=== PATIENT | male | born 1945 | race Caucasian/White ===

== ENCOUNTER 2016-04-08 11:11 | Outpatient (CLI) | payer MEDICARE ==
[~2016-04-08] VITALS: Ht 182.9 cm; Wt 102.3 kg
--- NOTE | ~2016-04-08 | HEMODYNAMI ---
PATIENT:ROSMERY SHEFFIELD MEDICAL RECORD: [id number] : 45 LOCATION:[facility] ADMISSION DATE: 04/08/16 Generatedon:04/08/201614:42 Patient name: ROSMERY SHEFFIELD Patient #: [id number] SSN: : 1945 Date of study: 04/08/2016 Page: Of Hemodynamic Procedure Report Patient Data Patient Demographics Procedure consent was obtained First Name: ROSMERY Gender: Male Last Name: NETTIE : 1945 [facility] Initial: GRETTA Age: 70 year(s) Patient #: [id number] Race: Unknown Additional ID: [id number] Contact details [address]: [address] [place] [address] State: [place] City: [place] Zip code: [address] Past Medical History Allergies Allergen Reaction Date Comments Reported Iodine 04/08/2016 Admission Admission Data Admission Date: 04/08/2016 Admission Time: 11:11 Lab Results Lab Result Date: 04/08/2016 Lab Result Time: 0:00 Biochemistry Name Units Result Min Max Creatinine mg/dl 1.1 --(--*-)-- 0.6 1.3 CBC Name Units Result Min Max Hemoglobin g/dl 11.9 *-(----)-- 13.5 17.5 Procedure Procedure Types Cath Procedure Diagnostic Procedure [facility] w/Coronaries w/Grafts Aortic Root Angiography PCI Procedure Coronary Stent Initial Miscellaneous Procedures Moderate Sedation up to 45 minutes Procedure Description Procedure Date Procedure Date: 04/08/2016 Procedure Start Time: 13:46 Procedure End Time: 14:28 Procedure Staff Name Function Amber Hilton RT Monitor Dixon Rios RT Scrub Oliverio Amador RN Nurse Jamil Ferguson MD Performing Physician Procedure Data Cath Procedure Fluoroscopy Diagnostic fluoroscopy Total fluoroscopy Time: 9.9 time: 9.9 min min Diagnostic fluoroscopy Total fluoroscopy dose: dose: 1596 mGy 1596 mGy Contrast Material Contrast Material Type Amount (ml) Isovue 300 188 Entry Location Entry Primary Successful Side Size Upsize Upsize Entry Closure Succes sful Closure Location (Fr) 1 (Fr) 2 (Fr) Remarks Device Remarks Femoral Right 5 Fr Exoseal artery Estimated blood loss: 5 ml Diagnostic catheters Device Type Used For End Catheter Placement Cordis 5Fr JL 4.0 Left Coronary Catheter (MP) Angiography Cordis 5Fr 3DRC Catheter Right Coronary (MP) Angiography Cordis 5Fr 3DRC Catheter SVG Angiography (MP) Cordis 5Fr 3DRC Catheter SVG Angiography (MP) Cordis 5Fr 3DRC Catheter Internal mammary (MP) arteriography Diagnostic Infinity 5Fr SVG Angiography MPA-2 catheter Cordis 5Fr Pigtail LV Angiography Catheter (MP) Procedure Complications No complications Procedure Medications Medication Administration Route Dosage Oxygen NC 2 l/min Lidocaine 2% added to field 20 Heparin Flush Bag added to field 2 bags (1000units/500ml NS) 0.9% NaCl I.V. 100 ml/hr Benadryl I.V. 50 mg Versed I.V. 1 mg Fentanyl I.V. 100 mcg Versed I.V. 1 mg Fentanyl I.V. 50 mcg Versed I.V. 1 mg Fentanyl I.V. 50 mcg Versed I.V. 1 mg Fentanyl I.V. 50 mcg Heparin Bolus I.V. 5000 units Integrilin (Bolus I.V. 9 ml 2mg/ml) Plavix P.O. 600 mg Hemodynamics Rest HGB: 11.9 (g/dl) Heart Rate: 75 (bpm) Pressure Samples Time Site Value (mmHg) Purpose Heart Use Rate(bpm) 14:00 LV 123/3,17 EDP 76 14:01 LV 121/19,20 Pullback 75 14:01 AO 124/66(90) Pullback 75 Gradients Valve Time Site 1 Site 2 Mean SEP/DFP Peak To Heart Use (mmHg) (sec/min) Peak Rate (mmHg) (bpm) Aortic 14:01 LV AO 0 12 0 75 121/19,20 124/66(90) Calculations Valve P-P Mean Valve Index Valve Source Name Gradient Area Flow (cm2) Aortic 0 0 0 0 Snapshots Pre Cath Intra NCS Post Cath Vital Signs Time Heart Resp SPO2 etCO2 [id number] NIBP (mmHg) Rhythm Pain Status Sharlene tion Rate (ipm) (%) (mmHg) (mmHg) Level (bpm) 13:35:48 81 15 99 0 0 146/81(121) NSR 5 (11) , 10(A ) Very distressing 13:40:04 76 17 100 0 0 143/85(117) NSR 5 (11) , 10(A ) Very distressing 13:44:29 73 16 99 0 0 141/75(113) NSR 0 (11) , No 10(A ) pain 13:48:47 74 15 97 0 0 136/74(104) NSR 0 (11) , No 9(A) pain 13:53:07 69 17 98 0 0 128/73(104) NSR 0 (11) , No 9(A) pain 13:57:25 76 17 97 0 0 119/69(96) NSR 0 (11) , No 9(A) pain 14:01:39 75 17 97 0 0 132/71(101) NSR 0 (11) , No 9(A) pain 14:05:55 72 18 99 0 0 121/75(103) NSR 0 (11) , No 9(A) pain 14:10:07 70 16 97 0 0 123/69(95) NSR 0 (11) , No 9(A) pain 14:14:24 69 17 98 0 0 116/62(99) NSR 0 (11) , No 9(A) pain 14:18:40 75 17 97 0 0 125/72(115) NSR 0 (11) , No 10(A ) pain 14:22:58 73 16 97 0 0 129/73(101) NSR 0 (11) , No 10(A ) pain Medications Time Medication Route Dose Verified Delivered Reason Notes Effectiveness by by 13:36:48 Oxygen NC 2 Jamil Janeie used for l/min [facility] Corby Amador RN procedure 13:36:57 Lidocaine 2% added 20ml Jamil Jamil for local to vial [facility] anesthetic field MD GRANT 13:37:02 Heparin Flush added 2 Jamil Jamil used for Bag to bags [facility] procedure (1000units/500ml field MD GRANT NS) 13:37:10 0.9% NaCl I.V. 100 Jamil Buffie Per physician ml/hr [facility] Corby Amador RN, MD 13:37:20 Benadryl I.V. 50 mg Jamil Janeie used for [facility] Corby Amador RN procedure 13:41:42 Versed I.V. 1 mg Jamil Buffie for sedation St. Coryb Amador RN, MD 13:41:47 Fentanyl I.V. 100 Jamil Buffie for sedation mcg [facility] Corby Amador RN, MD 13:44:59 Versed I.V. 1 mg Jamil Buffie for sedation [facility] Corby Amador RN, MD 13:45:07 Fentanyl I.V. 50 Jamil Buffie for sedation mcg [facility] Corby Amador RN, MD 13:52:46 Versed I.V. 1 mg Jamil Buffie for sedation [facility] Corby Amador RN, MD 13:52:49 Fentanyl I.V. 50 Jamil Buffie for sedation mcg [facility] Corby Amador RN, MD 13:56:29 Versed I.V. 1 mg Jamil Buffie for sedation [facility] Corby Amador RN, MD 13:56:33 Fentanyl I.V. 50 Jamil Buffie for sedation mcg [facility] Corby Amador RN, MD 14:06:38 Heparin Bolus I.V. 5000 Jamil Buffie for verifi ed units [facility] Corby Amador RN anticoagulation with dr MD barrientos 14:08:22 Integrilin I.V. 9 ml Jamil Laraie for Wasted 1 (Bolus 2mg/ml) [facility] Corby Amador RN anticoagulation ml of MD vial 14:23:37 Plavix P.O. 600 Jam[address] for mg [facility] Corby Amador RN antiplatelet therapy Procedure Log Time Note 13:08:59 Dixon Rios RT(R) sent for patient. Start room use. 13:09:01 Time tracking: Regular hours 13:09:05 Plan of Care:Hemodynamics will remain stable., Cardiac rhythm will remain stable., Comfort level will be maintained., Respiratory function will remain adequate., Patient/ family verbilizes understanding of procedure., Procedure tolerated without complication., Recovers from procedure without complications.. 13:25:18 Patient received from Pre/Post Procedure Room to CCL 1 Alert and oriented. Tansferred to table in Supine position. 13:34:25 Correct patient and procedure confirmed by team. 13:34:25 Warm blankets applied, and oswaldo hugger turned on for patient comfort. 13:34:27 ECG and BP/O2 sat monitors applied to patient. 13:34:27 Signed procedure consent form obtained from spouse. 13:34:31 Vital chart was started 13:34:53 Rhythm: sinus rhythm 13:34:55 Full Disclosure recording started 13:35:02 H&P Date Dictated: 04/06/2016 Within 30 days and on chart., H&P Addendum completed by physician on day of procedure. (MUST COMPLETE FOR ALL OUTPATIENTS). 13:35:04 Pre-op teaching completed and patient verbalized understanding. 13:35:04 Pre-procedure instructions explained to patient. 13:35:05 Family in waiting room. 13:35:08 Patient NPO since Midnight. 13:35:20 Patient allergic to Iodine 13:35:23 Is the patient allergic to Iodine/contrast media? Yes. 13:35:25 Was the patient premedicated? Yes 13:35:27 Is patient on blood thinner?No 13:35:36 Patient diabetic? No. 13:35:47 Previous problem with sedation/anesthesia? No ? 13:35:49 Snore? Yes 13:35:58 Sleep apnea? No 13:35:59 Deviated septum? No 13:36:00 Sticks out tongue? Yes 13:36:00 Opens mouth fully? Yes 13:36:02 Airway obstruction? No ? 13:36:07 Dentures? No ? 13:36:11 Pre procedure: right dorsailis pedis pulse 2+ Normal; easily identifiable; not easily obliterated 13:36:13 Patient pain scale 0/10 ?. 13:36:20 IV patent on arrival in left hand with 0.9% NaCl at [facility]. 13:36:48 Oxygen 2 l/min NC was given by Oliverio Amador RN; used for procedure; 13:36:57 Lidocaine 2% 20ml vial added to field was given by Jamil Ferguson MD; for local anesthetic; 13:37:02 Heparin Flush Bag (1000units/500ml NS) 2 bags added to field was given by Jamil Ferguson MD; used for procedure; 13:37:10 0.9% NaCl 100 ml/hr I.V. was given by Oliverio Amador RN; Per physician; 13:37:13 Lab Result : Hemoglobin 11.9 g/dl 13:37:13 Lab Result : Creatinine 1.1 mg/dl 13:37:18 Lab results completed and on chart. 13:37:20 Right groin area was prepped with chlora-prep and draped in sterile fashion 13:37:20 Benadryl 50 mg I.V. was given by lOiverio Amador RN; used for procedure; 13:37:21 Sharps counted by scrub and verified by R.N. 13:37:21 Alarms reviewed by R. N. 13:37:24 Use device set Femoral Dx 13:37:25 Bag Decanter opened to sterile field. 13:37:25 Acist Syringe opened to sterile field. 13:37:26 Terumo 5Fr Graton Sheath opened to sterile field. 13:37:26 Medline Cath Pack opened to sterile field. 13:37:27 St Abhishek 260cm J .035 wire opened to sterile field. 13:37:28 Acist Manifold opened to sterile field. 13:37:28 Acist Hand Control opened to sterile field. 13:37:29 Tegaderm 4 x 4 opened to sterile field. 13:37:29 Diagnostic Infinity 5Fr Multipack catheter opened to sterile field. 13:40:04 Baseline sample Acquired. 13:40:11 Final Timeout: patient, procedure, and site verified with staff and physician. All members of the team are in agreement. 13:40:13 Quick combo pads placed on patients chest and back. 13:40:26 Right groin site verified by team. 13:40:31 Physical assessment completed. ASA score P 2 - A patient with mild systemic disease as per Jamil Ferguson MD. 13:40:35 Sedation plan: IV Moderate Sedation Versed, Fentanyl 13:41:42 Versed 1 mg I.V. was given by Oliverio Amador RN; for sedation; 13:41:47 Fentanyl 100 mcg I.V. was given by Oliverio Amador RN; for sedation; 13:44:43 Zero performed for pressure channel P1 13:44:59 Versed 1 mg I.V. was given by Oliverio Amador RN; for sedation; 13:45:07 Fentanyl 50 mcg I.V. was given by Oliverio Amador RN; for sedation; 13:45:59 Procedure started. 13:46:02 Local anesthetic to right femoral artery with Lidocaine 2% by Jamil Ferguson MD.INITIAL ACCESS ONLY 13:47:19 A 5 Fr sheath was inserted into the Right Femoral artery 13:49:18 A Cordis 5Fr JL 4.0 Catheter (SHAYY) was advanced over the wire and used for Left Coronary Angiography. 13:52:46 Versed 1 mg I.V. was given by Oliverio Amador RN; for sedation; 13:52:49 Fentanyl 50 mcg I.V. was given by Oliverio Amador RN; for sedation; 13:53:48 Catheter removed. 13:53:56 A Cordis 5Fr 3DRC Catheter (MP) was advanced over the wire and used for Right Coronary Angiography. 13:54:15 A Cordis 5Fr 3DRC Catheter (MP) was advanced over the wire and used for SVG Angiography.To Circ--Occluded 13:54:26 A Cordis 5Fr 3DRC Catheter (MP) was advanced over the wire and used for SVG Angiography.To RCA 13:55:13 A Cordis 5Fr 3DRC Catheter (MP) was advanced over the wire and used for Internal mammary arteriography.Not Grafted 13:56:13 Catheter removed. 13:56:29 Versed 1 mg I.V. was given by Oliverio Amador RN; for sedation; 13:56:33 Fentanyl 50 mcg I.V. was given by Oliverio Amador RN; for sedation; 13:57:33 A Diagnostic Infinity 5Fr MPA-2 catheter was advanced over the wire and used for SVG Angiography.To RCA 13:58:29 Catheter removed. 13:58:35 A Cordis 5Fr Pigtail Catheter (MP) was advanced over the wire and used for LV Angiography. 13:59:16 Procedure type changed to Cath procedure, Diagnostic procedure, LHC, LHC w/Coronaries w/Grafts, Aortic Root Angiography, PCI procedure, Coronary Stent Initial, Miscellaneous Procedures, Moderate Sedation up to 45 minutes 14:00:50 LV gram done using ANDRADE 14:00:51 LV hemodynamics recorded. 14:00:54 Injector settings: Ml/sec: 10, Volume: 20, 14:01:37 Aortic Root visualized 14:03:14 Catheter removed. 14:03:44 Cordis 6FR XBLAD 3.5 guide catheter opened to sterile field. 14:03:45 Buyanihan BasixCompak Inflation Kit opened to sterile field. 14:04:49 Terumo 6Fr Graton Sheath opened to sterile field. 14:04:59 William Whisper J 300cm 0.014 guide wire opened to sterile field. 14:06:38 Heparin Bolus 5000 units I.V. was given by Oliverio Amador RN; for anticoagulation; verified with dr barrientos 14:07:29 6 Fr XBLAD 3.5 guide catheter was inserted over the wire 14:07:33 Phoenix wire advanced. 14:08:22 Integrilin (Bolus 2mg/ml) 9 ml I.V. was given by Oliverio Amador RN; for anticoagulation; Wasted 1 ml of vial 14:08:59 Whisper wire advanced. 14:11:42 Inflation number: 1 A Rillito FlowCardia White 3.0 X 15 balloon was prepped and advanced across the LMCA, then inflated to 12 NANCY for 0:29 (min:sec). 14:12:53 Balloon removed over the wire. 14:16:12 Inflation Number: 2 A Bitglasstronic Integrity 4.0 X 15 stent was prepped and advanced across the LMCA. The stent was deployed at 14 NANCY for 0:34 (min:sec). 14:16:51 Stent catheter was removed intact over wire. 14:17:07 Wire removed. 14:17:08 Guide catheter removed. 14:17:18 Sheath removed intact; hemostasis achieved with Exoseal to the Right Femoral artery. 14:17:28 Cordis 6Fr Exoseal opened to sterile field. 14:17:31 Procedure ended.(Physican Out) 14:18:09 Fluoroscopy time 09.90 minutes. 14:18:14 Fluoroscopy dose: 1596 mGy 14:18:14 Flurop Dose total: 1596 14:18:18 Contrast amount:Isovue 300 188ml. 14:18:20 Sharps counted by scrub and verified by R.N. 14:18:21 Insertion/operative site no bleeding no hematoma. 14:18:24 Post-op/insertion site Right Femoral artery dressed using a 4 x 4 and Tegaderm. 14:18:28 Post right femoral artery:stable, clean and dry 14:18:31 Post Procedure Pulses reassessed and unchanged 14:18:34 Post-procedure physical assessment completed. ASA score P 2 - A patient with mild systemic disease as per Jamil Ferguson MD. 14:18:37 Post procedure rhythm: unchanged. 14:18:41 Estimated blood loss: 5 ml 14:18:43 Post procedure instruction explained to patient.Patient verbalizes understanding. 14:18:44 Patient needs reinforcement of post procedure teaching. 14:18:53 Procedure Complication : No complications 14:18:56 See physician's report for complete and final results. 14:22:38 Terumo ANGLE 260cm glide wire opened to sterile field. 14:23:37 Plavix 600 mg P.O. was given by Oliverio Amador RN; for antiplatelet therapy; 14:24:40 Quick Combo opened to sterile field. 14:26:08 Vital chart was stopped 14:26:08 Procedure and supply charges have been captured, reviewed, submitted and are correct. 14:26:14 Report given to Pre/Post Procedure Room. 14:26:17 Patient transfered to Pre/Post Procedure Room with Stretcher. 14:28:12 Full Disclosure recording stopped 14:28:12 Procedure ended. 14:28:17 End room use (Document Last) Intervention Summary Intervention Notes Time ActionType Lesion and Equipment Action# Pressure Duration Attributes Used 14:11:42 Inflate LMCA Rillito 1 12 00:29 balloon Sci White 3.0 X 15 balloon 14:16:12 [address] stent LMCA Medtronic 2 14 00:34 Integrity 4.0 X 15 stent Device Usage Item Name Manufacture Quantity Catalog Number Hospital Part Current Mini mal Lot# / Charge Number Stock Stock Serial# Code Acist Acist 1 [id number] 649070 086733 787717 20 Syringe Medical Systems Inc Bag Microtek 1 2002S 621565 95577 662797 5 [employer] Medical Inc. Medline Cardinal 1 [id number] 550077 95772 358677 5 Cath Pack Health Terumo 5Fr Terumo 1 [id number] 252897 754735 975287 [address] Abhishek 1 213508 974993 268941 331209 30 260cm J .035 wire Acist Hand Acist 1 58762 587863 729939 778592 5 Control Medical Systems Inc Acist Acist 1 27611 406013 523451 470689 5 Manifold Medical Systems Inc Diagnostic Cardinal 1 [id number] 276474 98560 552440 30 Borderfree 5Fr Multipack catheter Tegaderm 4 3M 1 1626W 643144 707993 139248 5 x 4 Cordis 5Fr Cardinal 1 909108 5 JL 4.0 Health Catheter (MP) Cordis 5Fr Cardinal 1 813539 5 3DRC Health Catheter (MP) Diagnostic Cardinal 1 [id number] 877827 428211 018328 5 Infinity Health 5Fr MPA-2 catheter Cordis 5Fr Cardinal 1 024623 5 Pigtail Health Catheter (MP) Cordis 6FR Cardinal 1 [id number] 739066 032410 806560 10 XBLAD 3.5 Health guide catheter [facility] 1 [id number] 539470 621846 223987 15 Biogenic ReagentsixTeamVisibility Medical Inflation Kit Terumo 6Fr Terumo 1 [id number] 470370 475603 244322 40 Graton Sheath William William 1 [id number] 997046 978475 386896 5 Whisper J Vascular 300cm 0.014 guide wire Rillito Sci Rillito 1 [id number] 957971 804890 297508 1 [id number] [employer] 3.0 X 15 balloon Medtronic Medtronic 1 [id number] 035644 403687 7 [id number] Integrity 4.0 X 15 stent Cordis 6Fr Cardinal 1 EX600 021871 106180 456417 10 The Grommet Terumo Terumo 1 [id number] 171288 849937 334658 5 ANGLE 260cm glide wire Skyeng 1 [id number] 739664 652177 817725 5 Signature Audit Notrees Stage Time Signature Unsigned Intra-Procedure 04/08/2016 Amber Clark Counts 2:28:30 PM Counts RT(R) RT(R) 04/08/2016 2:41:30 PM Intra-Procedure 04/08/2016 Amber 2:42:24 PM Counts RT(R) Signatures Monitor : Amber Signature : Counts RT Date : Time : [facility] [address] [place] [address]
[2016-04-08] MEDS ORDERED: LISINOPRIL-HCTZ1 TA2 PO (12:39)
[2016-04-08] MEDS ORDERED: BAYER CHEWABLE81 MG PO (12:39)
[2016-04-08] MEDS ORDERED: BACLOFEN10 MG PO (12:39)
[2016-04-08] MEDS ORDERED: HYDROCODON-ACE1 EAC9 PO (12:40)
[2016-04-08] MEDS ORDERED: COREG6.25 MG PO (12:40)
[2016-04-08] MEDS ORDERED: TIROSINT100 MCG PO (12:41)
[2016-04-08] MEDS ORDERED: ALDACTONE25 MG PO (12:42)
[2016-04-08] MEDS ORDERED: PEPCID AC20 MG PO (12:42)
[2016-04-08 12:49] VITALS: BP 137/61; Ht 182.9 cm; Wt 102.3 kg
[2016-04-08 13:16] LABS: BASOPHILS 0 % (0.0-2.0); EOSINOPHILS 0 % (0-7); HEMATOCRIT 35.9 % (42.0-54.0); HEMOGLOBIN 11.9 g/dL (13.5-17.5); IMMATURE GRANULOCYTES 0.3 % (0-5); LYMPHOCYTES 14.6 % (15-50); MCH 31.6 pg (26.0-34.0); MCHC 33.1 g/dL (31.0-37.0); MCV 95.5 fL (80.0-100.0); MEAN PLATELET VOLUME 9.2 fL (7.4-10.4); MONOCYTES 7.7 % (2-11); NEUTROPHILS 77.4 % (40-80); PLATELET COUNT 175 10x3/uL (130-400); RBC 3.76 10x6/uL (4.20-6.10); RDW 13.1 % (11.5-14.5); WBC 8.9 10x3/uL (4.8-10.8)
[2016-04-08 13:31] LABS: ANION GAP 14.7 mmol/L (8-16); CALCIUM 9.3 mg/dL (8.5-10.1); CARBON DIOXIDE 27.6 mmol/L (21.0-32.0); CREATININE - SERUM 1.1 mg/dL (0.6-1.3); POTASSIUM - SERUM 4.3 mmol/L (3.5-5.1)
[2016-04-08] MEDS ORDERED: PLAVIX75 MG PO (14:54)
--- NOTE | 2016-04-08 14:55 | NUR ---
RESTING IN BED, VSS. 2L NC, NO RESP DISTRESS NOTED. NO C/O NAUSEA OR CHEST PAIN. INSTRUCTED PT TO KEEP HEAD FLAT ON PILLOW AND RIGHT LEG STRAIGHT. RIGHT GROIN DRESSING CDI, NO BLEEDING OR HEMATOMA NOTED. WILL CONTINUE TO MONITOR.
--- NOTE | 2016-04-08 15:25 | NUR ---
IN BED WITH EYES CLOSED, VSS. RIGHT GROIN CDI, NO HEMATOMA NOTED. NO C/O N/V OR CHEST PAIN. WILL CONTINUE TO MONITOR.
--- NOTE | 2016-04-08 15:40 | NUR ---
VOIDED 150CC OF CLEAR YELLOW URINE.
--- NOTE | 2016-04-08 16:10 | NUR ---
SANDWICH TRAY SERVED. NO C/O NAUSEA. VSS. WILL CONTINUE TO MONITOR.
--- NOTE | 2016-04-08 16:41 | NUR ---
RESTING IN BED, VSS. NO NEEDS VOICED AT THIS TIME. RIGHT GROIN DRESSING CDI, NO BLEEDING OR HEMATOMA NOTED. NO C/O PAIN AT THIS TIME. WILL CONTINUE TO MONITOR.
--- NOTE | 2016-04-08 18:33 | NUR ---
1800-UP IN ROOM, AMBULATE, VOID 600CC CLEAR YELLOW URINE. RIGHT GROIN- CDI, NO HEMATOMA NOTED, SOFT TO TOUCH. 1815-IV D'C WITH CATH TIP INTACT, WRITTEN AND VERBAL INSTRUCTIONS GIVEN, INSTRUCTED TO CALL OFFICE TUESDAY FOR INFO ON NEXT STENT. 1830-D'C HOME WITH FAMILY IN PRIVATE CAR
--- NOTE | 2016-04-12 14:24 | OP ---
PATIENT NAME: ROSMERY SHEFFIELD MEDICAL RECORD: [id number] :45 LOCATION:D.CAT ADMISSION DATE: SURGEON: VERO MARTINES MD DATE OF OPERATION: 04/08/2016 PROCEDURE: Left heart catheterization, selective coronary angiography, right femoral approach. CATHETERS: A 5-Trinidadian sheath, 5/4 left and right Yvonne, 5/4 pig. The procedure was tolerated and the patient returned to the haas, sheath removed. FINDINGS: Left ventriculography in the 30-degree ANDRADE view shows lateral hypokinesis. Overall, function reduced 30-35%. CORONARY ANATOMY: LEFT MAIN: Left main has a distal 90-95% stenosis before the takeoff the LAD. CIRCUMFLEX: Itself is totally occluded, fills via right to left collaterals. Right coronary is totally occluded. AORTIC ROOT: Aortic root injection was performed. This showed the only patent graft is the saphenous vein graft to the right. Saphenous vein graft to right shows an 80% mid portion stenosis fairly discrete. IMPRESSION AND PLAN: Intervention of the left main momentarily. Intervention to the right saphenous vein graft to right at a later date. A 5-Trinidadian sheath was changed for a 6-Trinidadian sheath. XB LAD guide catheter provided good guide catheter support followed by a 300 cm Whisper wire, which was placed across the 90% left main this portion of vessel. Predeployment balloon was a 3.0 x 15-mm Scurry balloon, which was inflated up to 12 atmospheres for adequate pre-deployment. Next, stent placed was a 4.0 x 15 mm Integrity nondrug-eluting stent was inflated to 14 atmospheres for 45 seconds. Final x-rays shows excellent resolution of a 90% to 95% stenosis to no residual. DOUG flow was 3 throughout the procedure. Heparin, Integrilin was used in the case. Plavix was loaded in the lab. Sheath was closed with ExoSeal device. TRANSINT:[id number] Voice Confirmation ID: [id number] DOCUMENT ID: [id number] VERO MARTINES MD at 1424 CC: [id number] DICTATION DATE: 04/08/16 1425 PUBLIC HEALTH SANITARIAN TECHNICIAN: 04/08/16 1518 DEP CLI 04/08/16 [place] [id number]
== END 2016-04-08 18:30 | disposition home or self-care (01) ==
LOC: D.CATH 11:11
PROVIDERS: Internal Medicine Cardiovascular Disease
DX: I25.10 Atherosclerotic heart disease of native coronary artery without angina pectoris (principal); I25.810 Atherosclerosis of coronary artery bypass graft(s) without angina pectoris

== ENCOUNTER 2016-04-20 11:38 | Outpatient (CLI) | payer MEDICARE ==
[~2016-04-20] VITALS: Ht 182.9 cm; Wt 102.7 kg
--- NOTE | ~2016-04-20 | HEMODYNAMI ---
PATIENT:ROSMERY SHEFFIELD MEDICAL RECORD: [id number] : 45 LOCATION:[facility] ADMISSION DATE: 04/20/16 Generatedon:04/20/201615:24 Patient name: ROSMERY SHEFFIELD Patient #: [id number] : 1945 Date of study: 04/20/2016 Page: Of Hemodynamic Procedure Report Patient Data Patient Demographics Procedure consent was obtained First Name: ROSMERY Gender: Male Last Name: NETTIE : 1945 Middle Initial: GRETTA Age: 70 year(s) Patient #: [id number] Race: SSN: [id number] Additional ID: [id number] Contact details Address: [address] [place] [address] State: [place] City: [place] Zip code: [address] Past Medical History Allergies Allergen Reaction Date Comments Reported Iodine 04/08/2016 Other allergy 04/20/2016 iodine Admission Admission Data Admission Date: 04/20/2016 Admission Time: 11:38 Arrival Date: 04/20/2016 Arrival Time: 14:00 Admit Source: Other Insurance Payor: Private health insurance Height (in.): 73 BSA: 2.3 (m2) Height (cm.): 185.42 BMI: 30.87 (kg/m2) Weight (lbs.): 234 Weight (kg.): 106.14 Lab Results Lab Result Date: 04/20/2016 Lab Result Time: 0:00 CBC Name Units Result Min Max Hemoglobin g/dl 12.5 *-(----)-- 13.5 17.5 Procedure Procedure Types Cath Procedure PCI Procedure SVG-BMS/CHARBEL Initial Procedure Description Procedure Date Procedure Date: 04/20/2016 Procedure Start Time: 15:02 Procedure End Time: 15:21 Procedure Staff Name Function Jamil Ferguson MD Performing Physician Remedios Hernandez RT Scrub Katherine Delaney RN Nurse Kristen Hanson RT Monitor Procedure Data Cath Procedure Fluoroscopy Diagnostic fluoroscopy Total fluoroscopy Time: 6.2 time: 6.2 min min Diagnostic fluoroscopy Total fluoroscopy dose: dose: 223.39 mGy 223.39 mGy Contrast Material Contrast Material Type Amount (ml) Isovue 370 47 Entry Location Entry Primary Successful Side Size Upsize Upsize Entry Closure Succes sful Closure Location (Fr) 1 (Fr) 2 (Fr) Remarks Device Remarks Femoral Right 6 Fr Exoseal artery Short Estimated blood loss: 5 ml Procedure Complications No complications Procedure Medications Medication Administration Route Dosage Oxygen NC 2 l/min Heparin Flush Bag added to field 2 bags (1000units/500ml NS) Lidocaine 2% added to field 20 Fentanyl I.V. 50 mcg Versed I.V. 1 mg Fentanyl I.V. 50 mcg Versed I.V. 1 mg Fentanyl I.V. 25 mcg Fentanyl I.V. 50 mcg Heparin Bolus I.V. 5000 units Hemodynamics Rest BSA: 2.3 (m2) HGB: 12.5 (g/dl) O2 Consumption: Estimated: 238.75 (ml/min) O2 Con sumption indexed: Estimated:103.8 (ml/min/m) Heart Rate: 38 (bpm) Snapshots Pre Cath Intra NCS Post Cath Vital Signs Time Heart Resp SPO2 NIBP (mmHg) Rhythm Pain Sedation Rate (ipm) (%) Status Level (bpm) 14:52:23 88 18 99 133/83(127) NSR 0 (11) 10(A) , No pain 14:56:45 73 20 100 141/72(102) NSR 0 (11) 10(A) , No pain 15:01:05 81 19 100 131/70(103) NSR 0 (11) 10(A) , No pain 15:05:25 80 16 98 137/73(101) NSR 0 (11) 9(A) , No pain 15:09:35 83 20 96 110/79(96) NSR 0 (11) 9(A) , No pain 15:13:47 71 19 96 118/62(88) NSR 0 (11) 9(A) , No pain 15:18:07 79 18 94 116/63(83) NSR 0 (11) 9(A) , No pain Medications Time Medication Route Dose Verified Delivered Reason Notes Effectiveness by by 14:55:03 Oxygen NC 2 Katherine Katherine used for l/min Delaney Delaney locks tender RN 14:55:12 Heparin Flush added 2 Katherine Katherine used for Bag to bags Delaney Delaney procedure (1000units/500ml field RN RN NS) 14:55:40 Lidocaine 2% added 20ml Katherine Katherine used for to vial Delaney Delaney procedure field RN RN 15:04:06 Fentanyl I.V. 50 Katherine Katherine for sedation mcg Rhett Delaney RN RN 15:04:11 Versed I.V. 1 mg Katherine Katherine for sedation Delaneyhubert Delaney RN RN 15:05:53 Fentanyl I.V. 50 Katherine Katherine for sedation mcg Rhett Delaney RN RN 15:05:56 Versed I.V. 1 mg Katherine Aktherine for sedation Delaneyhubert Delaney RN RN 15:06:39 Fentanyl I.V. 25 Katherine Katherine for sedation mcg Rhett Delaney RN RN 15:15:41 Fentanyl I.V. 50 Katherine Katherine for sedation mcg Rhett Delaney RN RN 15:16:26 Heparin Bolus I.V. 5000 Katherine Katherine for units Delaney Delaney anticoagulation RN beef boner Log Time Note 14:30:21 Remedios Hernandez RT(R) sent for patient. Start room use. 14:42:51 Informed consent obtained and on chart 14:42:57 Diagnostic Cath Status : Elective 14:43:45 Time tracking: Regular hours 14:43:49 Plan of Care:Hemodynamics will remain stable., Cardiac rhythm will remain stable., Comfort level will be maintained., Respiratory function will remain adequate., Patient/ family verbilizes understanding of procedure., Procedure tolerated without complication., Recovers from procedure without complications.. 14:44:42 Patient Height : 185.42 inches 14:44:45 Patient Weight : 106.14 lbs 14:44:47 Admit Source: Other 14:44:49 Arrival Date: 04/20/2016 2:00:00 PM 14:46:01 Insurance Payor : Private health insurance 14:46:21 Patient received from Pre/Post Procedure Room to CCL 3 Alert and oriented. Tansferred to table in Supine position. 14:46:22 Warm blankets applied, and oswaldo hugger turned on for patient comfort. 14:46:22 Correct patient and procedure confirmed by team. 14:46:24 Signed procedure consent form obtained from patient. 14:51:04 ECG and BP/O2 sat monitors applied to patient. 14:51:05 Vital chart was started 14:51:06 Baseline sample Acquired. 14:51:13 Baseline sample Acquired. 14:51:18 Full Disclosure recording started 14:51:32 H&P Date Dictated: 04/06/2016 Within 30 days and on chart., H&P Addendum completed by physician on day of procedure. (MUST COMPLETE FOR ALL OUTPATIENTS). 14:51:36 Family in waiting room. 14:51:38 Patient NPO since Midnight. 14:51:52 Patient allergic to Other allergyiodine 14:51:55 Is the patient allergic to Iodine/contrast media? Yes. 14:51:56 Was the patient premedicated? Yes 14:52:02 Patient diabetic? No. 14:52:05 Snore? Yes 14:52:07 Sleep apnea? No 14:52:27 Previous problem with sedation/anesthesia? No ? 14:52:37 Dentures? Yes tight 14:55:03 Oxygen 2 l/min NC was given by Katherine Delaney RN; used for procedure; 14:55:12 Heparin Flush Bag (1000units/500ml NS) 2 bags added to field was given by Katherine Delaney RN; used for procedure; 14:55:40 Lidocaine 2% 20ml vial added to field was given by Katherine Delaney RN; used for procedure; 14:57:06 Baseline sample Acquired. 14:57:10 Rhythm: sinus rhythm 14:57:37 Deviated septum? No 14:57:46 Opens mouth fully? Yes 14:57:47 Sticks out tongue? Yes 14:57:51 Airway obstruction? No ? 14:57:54 Pre procedure: right dorsailis pedis pulse 1+ Palpable, but thready & weak; easily obliterated 14:57:57 Patient pain scale 0/10 ?. 14:58:12 IV patent on arrival in left forearm with 0.9% NaCl at [facility]. 15:01:24 Lab Result : Hemoglobin 12.5 g/dl 15:01:27 Lab results completed and on chart. 15:01:30 Right groin area was prepped with chlora-prep and draped in sterile fashion 15::31 Alarms reviewed by R. N. 15::31 Sharps counted by scrub and verified by R.N. 15:01:33 Physician arrived 15:01:33 --------ALL STOP TIME OUT------ 15:01:34 Final Timeout: patient, procedure, and site verified with staff and physician. All members of the team are in agreement. 15:01:36 Right groin site verified by team. 15:01:39 Physical assessment completed. ASA score P 2 - A patient with mild systemic disease as per Jamil Ferguson MD. 15:01:42 Sedation plan: IV Moderate Sedation Versed, Fentanyl 15:02:12 Use device set Femoral PCI 15:02:13 Acist Syringe opened to sterile field. 15:02:14 Acist Hand Control opened to sterile field. 15:02:14 Bag Decanter opened to sterile field. 15:02:15 Medline Cath Pack opened to sterile field. 15:02:15 Terumo 6Fr [place] Sheath opened to sterile field. 15:02:15 St Abhishek 260cm J .035 wire opened to sterile field. 15:02:16 Merit BasixCompak Inflation Kit opened to sterile field. 15:02:16 Acist Manifold opened to sterile field. 15:02:17 Tegaderm 4 x 4 opened to sterile field. 15:02:19 Procedure started. 15:02:45 Local anesthetic to right femoral artery with Lidocaine 2% by Jamil Ferguson MD.INITIAL ACCESS ONLY 15:02:58 A 6 Fr Short sheath was inserted into the Right Femoral artery 15:03:00 Zero performed for pressure channel P1 15:04:06 Fentanyl 50 mcg I.V. was given by Katherine Delaney RN; for sedation; 15:04:11 Versed 1 mg I.V. was given by Katherine Delaney RN; for sedation; 15:04:22 William [place] 300cm 0.014 guide wire opened to sterile field. 15:05:53 Fentanyl 50 mcg I.V. was given by Katherine Delaney RN; for sedation; 15:05:56 Versed 1 mg I.V. was given by Katherien Delaney RN; for sedation; 15:06:39 Fentanyl 25 mcg I.V. was given by Katherine Delaney RN; for sedation; 15:07:09 Medtronic Launcher 6Fr MB 1 guide catheter opened to sterile field. 15:08:13 6 Fr mb 1 guide catheter was inserted over the wire 15:08:40 Terumo ADVANTAGE 260CM glide wire opened to sterile field. 15:09:25 glide wire advanced. 15:12:17 Terumo TORQUE DEVICE PLASTIC .038 opened to sterile field. 15:14:33 glide wire removed 15:14:43 SVG angiography performed. 15:14:53 cougar wire advanced. 15:14:58 Wire advanced across lesion. 15:15:41 Fentanyl 50 mcg I.V. was given by Katherine Delaney RN; for sedation; 15:16:26 Heparin Bolus 5000 units I.V. was given by Katherine Delaney RN; for anticoagulation; 15:18:19 Inflation Number: 1 A Synthegotronic Integrity 4.0 X 18 stent was prepped and advanced across the Aorta Right -> Dist RCA. The stent was deployed at 14 NANCY for 0:30 (min:sec). 15:18:39 Stent catheter was removed intact over wire. 15:18:46 Wire removed. 15:18:46 Guide catheter removed. 15:18:54 Cordis 6Fr Exoseal opened to sterile field. 15:19:20 Sheath removed intact; hemostasis achieved with Exoseal to the Right Femoral artery. 15:19:22 Procedure ended.(Physican Out) 15:19:32 Fluoroscopy time 06.20 minutes. 15:19:39 Fluoroscopy dose: 223.39 mGy 15:19:39 Flurop Dose total: 223.39 15:19:53 Contrast amount:Isovue 370 47ml. 15:20:18 Sharps counted by scrub and verified by R.N. 15:20:20 Insertion/operative site no bleeding no hematoma. 15:20:25 Post-op/insertion site Right Femoral artery dressed using a 4 x 4 and Tegaderm. 15:20:29 Post right femoral artery:stable 15:20:30 Post Procedure Pulses reassessed and unchanged 15:20:33 Post procedure rhythm: unchanged. 15:20:37 Estimated blood loss: 5 ml 15:20:38 Post procedure instruction explained to patient.Patient verbalizes understanding. 15:20:38 Patient needs reinforcement of post procedure teaching. 15:20:55 Procedure type changed to Cath procedure, PCI procedure, SVG-BMS/CHARBEL Initial 15:20:56 Procedure and supply charges have been captured, reviewed, submitted and are correct. 15:21:06 Procedure Complication : No complications 15:21:07 Vital chart was stopped 15:21:08 See physician's report for complete and final results. 15:21:18 Report given to Pre/Post Procedure Room. 15:21:22 Patient transfered to Pre/Post Procedure Room with Stretcher. 15:21:24 Procedure ended. 15:21:24 Full Disclosure recording stopped 15:21:41 ACC-PCI Only Patient was given prescriptions, or instructed by Jamil Ferguson MD to start/continue the following medications upon discharge: Plavix 15:21:44 End room use (Document Last) Intervention Summary Intervention Notes Time ActionType Lesion and Equipment Action# Pressure Duration Attributes Used 15:18:19 Place stent Aorta Right Medtronic 1 14 00:30 -> Dist RCA Integrity 4.0 X 18 stent Device Usage Item Name Manufacture Quantity Catalog Hospital Part Current Minimal Lot# / Number Charge Number Stock Stock Serial# Code Acist Acist 1 71016 501502 467636 358001 20 Syringe Medical Systems Inc Acist Hand Acist 1 78097 942326 517851 110028 5 Control Medical Systems Inc Bag Microtek 1 2002S 039927 11493 096138 5 Hex Labs, Inc. Inc. Medline Cardinal 1 [id number] 634554 69451 116841 5 Cath Pack Health Terumo 6Fr Terumo 1 EUM950 063943 018611 527172 [address] Abhishek 1 777327 672299 304181 177304 30 260cm J .035 wire Merit Merit 1 [id number] 718943 671080 046245 15 goodideazsixCompare And Share Medical Inflation Kit Acist Acist 1 60979 261125 829239 598020 5 Manifold Medical Systems Inc Tegaderm 4 3M 1 1626W 499831 194282 932632 5 x 4 William William 1 [id number] 993302 803360 479934 1 Newport Vascular 300cm 0.014 guide wire Medtronic Medtronic 1 [id number] 066291 48409 102539 1 Launcher 6Fr MB 1 guide catheter Terumo Terumo 1 LL5874 766078 728563 5 ADVANTAGE 260CM glide wire Terumo [place] 1 TD01 944179 456140 530109 5 TORQUE Scientific DEVICE PLASTIC .038 Medtronic Medtronic 1 [id number] 945686 355714 456219 9 [id number] Integrity 4.0 X 18 stent Cordis 6Fr Cardinal 1 EX600 124879 482369 380271 10 [facility] Signature Audit [place] Stage Time Signature Unsigned Intra-Procedure 04/20/2016 Kristen Hanson 3:24:41 PM RT(R) Signatures Monitor : Kristen Hanson RT Signature : Date : Time : [place] [id number] [place] [id number]
[~2016-04-20 11:38] MED LIST: ALDACTONE25 MG PO; BACLOFEN10 MG PO; BAYER CHEWABLE81 MG PO; COREG6.25 MG PO; HYDROCODON-ACE1 EAC9 PO; LISINOPRIL-HCTZ1 TA2 PO; PEPCID AC20 MG PO; PLAVIX75 MG PO; TIROSINT100 MCG PO
[2016-04-20 13:35] VITALS: BP 142/69; Ht 182.9 cm; Wt 102.7 kg
[2016-04-20 14:26] LABS: BASOPHILS 0.1 % (0.0-2.0); EOSINOPHILS 0.2 % (0-7); HEMATOCRIT 37.1 % (42.0-54.0); HEMOGLOBIN 12.5 g/dL (13.5-17.5); IMMATURE GRANULOCYTES 0.5 % (0-5); LYMPHOCYTES 21.5 % (15-50); MCHC 33.7 g/dL (31.0-37.0); MCV 94.9 fL (80.0-100.0); MEAN PLATELET VOLUME 9.3 fL (7.4-10.4); MONOCYTES 9.1 % (2-11); NEUTROPHILS 68.6 % (40-80); PLATELET COUNT 206 10x3/uL (130-400); RBC 3.91 10x6/uL (4.20-6.10)
[2016-04-20 15:21] LABS: ANION GAP 11.8 mmol/L (8-16); CALCIUM 9.3 mg/dL (8.5-10.1); CARBON DIOXIDE 28.8 mmol/L (21.0-32.0); CREATININE - SERUM 1.1 mg/dL (0.6-1.3); POTASSIUM - SERUM 4.6 mmol/L (3.5-5.1)
--- NOTE | 2016-04-20 16:31 | NUR ---
1545-RIGHT GROIN-CDI, NO BLEEDING NOTED 1615-NO CHANGES IN GROIN
--- NOTE | 2016-04-21 12:21 | OP ---
PATIENT NAME: ROSMERY SHEFFIELD MEDICAL RECORD: [id number] :45 LOCATION:D.CAT ADMISSION DATE: SURGEON: VERO MARTINES MD DATE OF OPERATION: 04/20/2016 This is a PTCA Report. For catheterization report, please see report dictated last week. DESCRIPTION OF PROCEDURE: After a 6-Bengali sheath was placed into the right femoral artery, a multipurpose guiding catheter provided excellent guide catheter support. ____ was an 80% stenosis in the saphenous vein graft to the right artery, discrete, as described previously. Wire used was a 300 cm [place] XT wire, it was placed across the 80% stenosis of the saphenous vein graft to the right. Stent deployed was a 4.0 x 16 mm Integrity nondrug-eluting stent, it was inflated up to 14 atmospheres for 45 seconds. Final injection shows excellent resolution of 80% stenosis, no significant residual. DOUG flow was 3 throughout the procedure. The patient was previously on Plavix, so heparin was used during the case. Sheath was closed with ExoSeal device. TRANSINT:[id number] Voice Confirmation ID: [id number] DOCUMENT ID: [id number] VERO MARTINES MD at 1221 CC: [id number] DICTATION DATE: 04/20/16 1527 ROLL HANDLER: 04/20/16 1901 DEP CLI 04/20/[address] [facility] [address] [place] [address]
== END 2016-04-20 19:30 | disposition home or self-care (01) ==
LOC: D.CATH 11:38
PROVIDERS: Internal Medicine Interventional Cardiology
DX: I25.719 Atherosclerosis of autologous vein coronary artery bypass graft(s) with unspecified angina pectoris (principal); I25.119 Atherosclerotic heart disease of native coronary artery with unspecified angina pectoris

== ENCOUNTER 2016-04-23 09:59 | Emergency (ER) | payer MEDICARE ==
[2016-04-20 13:35] VITALS: BMI 30.7
[2016-04-23 10:42] LABS: BASOPHILS 0.2 % (0.0-2.0); EOSINOPHILS 2.7 % (0-7); HEMATOCRIT 36.3 % (42.0-54.0); HEMOGLOBIN 12.5 g/dL (13.5-17.5); IMMATURE GRANULOCYTES 0.5 % (0-5); LYMPHOCYTES 21.5 % (15-50); MCH 32.6 pg (26.0-34.0); MCHC 34.4 g/dL (31.0-37.0); MCV 94.8 fL (80.0-100.0); MEAN PLATELET VOLUME 9.2 fL (7.4-10.4); MONOCYTES 9.7 % (2-11); NEUTROPHILS 65.4 % (40-80); PLATELET COUNT 195 10x3/uL (130-400); RBC 3.83 10x6/uL (4.20-6.10); RDW 13.1 % (11.5-14.5); WBC 12.9 10x3/uL (4.8-10.8)
[2016-04-23 10:52] LABS: APTT 22.6 SECONDS (22.8-39.4); INR 0.99 (0.85-1.17)
[2016-04-23 11:01] LABS: ALBUMIN 3.6 g/dL (3.4-5.0); ALKALINE PHOSPHATASE 51 U/L (46-116); ALT (SGPT) 39 U/L (10-68); CALC OSMOLALITY 276 mosm/kg (275-300); CALCIUM 8.7 mg/dL (8.5-10.1); CARBON DIOXIDE 26.2 mmol/L (21.0-32.0); CHLORIDE - SERUM 100 mmol/L (98-107); CREATININE - SERUM 1.2 mg/dL (0.6-1.3); GLUCOSE 104 mg/dL (74-106); POTASSIUM - SERUM 4.1 mmol/L (3.5-5.1); PROTEIN - SERUM 7.4 g/dL (6.4-8.2); SODIUM 135 mmol/L (136-145); UREA NITROGEN 32 mg/dL (7-18); eGFR NON AFRICAN AMERICAN 64 mL/min (90-120)
[2016-04-23 11:10] LABS: CHOL - HDL RATIO 5.6 ratio (2.3-4.9); CHOLESTEROL, TOTAL 233 mg/dL (0-200); CKMB 0.4 U/L (0.0-3.6); CREATINE KINASE 21 UL (21-232); HDL CHOLESTEROL 42 mg/dL (32-96); TRIGLYCERIDE 500 mg/dL (30-200); TROPONIN-I 0.018 ng/mL (0.000-0.060)
[2016-04-23 13:24] LABS: APPEARANCE CLEAR (CLEAR); BILIRUBIN NEGATIVE (NEGATIVE); COLOR STRAW (YELLOW); GLUCOSE NEGATIVE (NEGATIVE); KETONE NEGATIVE (NEGATIVE); LEUKOCYTE ESTERASE NEGATIVE (NEGATIVE); NITRITE NEGATIVE (NEGATIVE); PROTEIN NEGATIVE (NEGATIVE); UROBILINOGEN NORMAL (NORMAL)
--- NOTE | 2016-04-26 10:08 | CN ---
PATIENT NAME:ROSMERY SHEFFIELD MEDICAL RECORD: [id number] : 45 LOCATION:.ER ADMIT DATE: ACCOUNT: [id number] CONSULTING PHYSICIAN: CLAUDY CHIRINOS MD REFERRING PHYSICIAN: CHUCK DAVIDSON DATE OF CONSULTATION: 04/23/2016 Cardiology Consultation DIAGNOSES: 1. New-onset atrial fibrillation. 2. Shortness of breath, dyspnea on exertion. 3. Coronary artery disease. 4. Previous percutaneous transluminal coronary angioplasty stent. 5. Hypertension. HISTORY OF PRESENT ILLNESS: This is a gentleman, patient of Dr. Ferguson, who recently underwent 2-vessel PTCA stent and is on aspirin and Plavix. He began having shortness of breath and some chest discomfort this morning. EMS found to have heart rates in the 120s. He was given sublingual nitro, his chest pain resolved. His heart rate is still in the 90s, that is atrial fibrillation. He does not have a history of atrial fibrillation. He is on Coreg. PHYSICAL EXAMINATION: GENERAL APPEARANCE: Well-nourished, well-developed, appears stated age. Level of distress, comfortable. PSYCHIATRIC: Mental status, alert, normal affect. Orientation, oriented to time, place and person. EYES: Lids and conjunctiva, noninjected. No discharge, no pallor. ENT: Lips, teeth, gums, normal dentition. Oropharynx, no cyanosis, no pallor. NECK: Carotid arteries, bilateral normal upstroke, no bruits, no thrills. JUGULAR VEINS: No jugular venous pressure or distention. CERVICAL LYMPH NODES: Nontender, nonenlarged. THYROID: Not enlarged. Nontender. No nodules. LUNGS: Respiratory effort, unlabored. CHEST: Normal curvature. No thoracic deformity. No chest wall tenderness. Percussion, resonant. Auscultation, clear. No wheezes, no rales, no rhonchi. CARDIOVASCULAR: Precordial exam, nondisplaced. No heaves or pericardial thrills. Rate and rhythm, regular. Heart sounds, normal S1, normal S2. No S3, no gallop, no rub. Systolic murmur, not heard. Diastolic murmur, not heard. EXTREMITIES: No cyanosis, no edema. Peripheral pulses, full and equal in all extremities, except as noted. No bruits appreciated. ABDOMEN: Soft, nondistended. Normal aorta. No bruit. Nontender. No masses. Liver, nontender, no hepatomegaly. Spleen, nontender, no splenomegaly. MUSCULOSKELETAL: No joint tenderness. No joint swelling. No erythema. NEUROLOGICAL: Normal gait, normal strength, normal tone. SKIN: Warm and dry. REVIEW OF SYSTEMS: The patient reports easy bruising but reports no swollen glands. The patient reports no fever, no night sweats, no significant weight gain, no significant weight loss. No significant exercise tolerance. The patient reports no dry eyes, no irritation, no vision change. Patient reports no difficulty hearing and no ear pain. Patient reports no frequent nose bleeds or nose and sinus problems. Patient reports on arm pain on exertion. No shortness of breath while lying down. No history of heart murmur. Patient CONSULT REPORT [id number] ROSMERY SHEFFIELD reports no cough, no wheezing or coughing up blood. Patient reports no abdominal pain, no vomiting. Normal appetite. No diarrhea and not vomiting blood. No nausea and no constipation. Patient reports no incontinence. No difficulty urinating. No hematuria. No increased frequency. Patient reports no muscle aches. No weakness, no arthralgias, no back pain. No swelling of the extremities. Patient reports no abnormal mole, no jaundice, no rashes. Reports no loss of consciousness. No weakness and no numbness. No seizures, dizziness, or headaches. The patient reports no depression, no sleep disturbance, feeling safe in a relationship and no alcohol abuse. Patient reports on fatigue. Reports no runny nose or sinus pressure. No itching, no hives, and no frequent sneezing. OVERALL IMPRESSION: New-onset atrial fibrillation. Discussed the case with Dr. Ferguson. He would like to continue sotalol, does not want to put him on antithrombotic this weekend. We will see him back in the office on Tuesday. If he still remains in atrial fibrillation, we will consider anticoagulation and direct current cardioversion. TRANSINT:[id number] Voice Confirmation ID: [id number] DOCUMENT ID: [id number] CLAUDY CHIRINOS MD at 1008 CC: [id number] DICTATION DATE: 04/23/16 1337 GARLAND MAKER: 04/23/16 1402 DEP ER 04/23/16 [place] [address]
== END 2016-04-23 14:36 | disposition home or self-care (01) ==
LOC: D.ER 09:59
PROVIDERS: Emergency Medicine
DX: R07.9 Chest pain, unspecified (principal); I48.91 Unspecified atrial fibrillation; I10 Essential (primary) hypertension; E03.9 Hypothyroidism, unspecified; I45.4 Nonspecific intraventricular block

== ENCOUNTER → 2016-05-20 08:37 | Outpatient (CLI) | payer MEDICARE ==
[2016-04-20 13:35] VITALS: BMI 30.7
[~2016-05-20 08:37] MED LIST changes: +BETAPACE 80 MG80 MG PO; +DOXYCYCLINE HY100 M2 PO; +PREDNISONE20 MG PO
== END | disposition home or self-care (01) ==
LOC: D.CT 08:37
DX: I70.213 Atherosclerosis of native arteries of extremities with intermittent claudication, bilateral legs (principal); I70.223 Atherosclerosis of native arteries of extremities with rest pain, bilateral legs

== ENCOUNTER 2016-06-02 11:13 | Outpatient (CLI) | payer MEDICARE ==
[~2016-06-02] VITALS: Ht 182.9 cm; Wt 100.5 kg
--- NOTE | ~2016-06-02 | HEMODYNAMI ---
PATIENT:ROSMERY SHEFFIELD MEDICAL RECORD: [id number] : 45 LOCATION:[facility] ADMISSION DATE: 06/02/16 Generatedon:06/02/201614:48 Patient name: ROSMERY SHEFFIELD Patient #: [id number] : 1945 Date of study: 06/02/2016 Page: Of Hemodynamic Procedure Report Patient Data Patient Demographics Procedure consent was obtained First Name: ROSMERY Gender: Male Last Name: NETTIE : 1945 [facility] Initial: GRETTA Age: 70 year(s) Patient #: [id number] Race: SSN: [id number] Additional ID: [id number] Contact details [address]: [address] [place] [address] State: [place] City: [place] Zip code: [address] Past Medical History Allergies Allergen Reaction Date Comments Reported Iodine 04/08/2016 Other allergy 04/20/2016 iodine Other allergy 06/02/2016 iodine, plavix Admission Admission Data Admission Date: 06/02/2016 Admission Time: 11:13 Lab Results Lab Result Date: 06/02/2016 Lab Result Time: 11:55 Biochemistry Name Units Result Min Max BUN mg/dl 40 --(----)-* 7 18 Creatinine mg/dl 1.5 --(----)-* 0.6 1.3 CBC Name Units Result Min Max Hematocrit % 32.9 *-(----)-- 42 54 Hemoglobin g/dl 11.2 *-(----)-- 13.5 17.5 Procedure Procedure Types Cath Procedure Miscellaneous Procedures Moderate Sedation up to 30 minutes Peripheral Cath Diagnostic Procedure Cath Peripheral Sdeiv-Ypwdfcl-Tdy-Off Peripheral vascular Intervention Stent Stent Iliac w/plasty Initial Procedure Description Procedure Date Procedure Date: 06/02/2016 Procedure Start Time: 14:09 Procedure End Time: 14:47 Procedure Staff Name Function Jamil Ferguson MD Performing Physician Amber Hilton RT Scrub Oliverio Amador RN Nurse Adarsh Neri RT Monitor Matty Caban RN Fire Captain Marine Procedure Data Cath Procedure Fluoroscopy Diagnostic fluoroscopy Total fluoroscopy Time: 4.2 time: 4.2 min min Diagnostic fluoroscopy Total fluoroscopy dose: 315 dose: 315 mGy mGy Contrast Material Contrast Material Type Amount (ml) Isovue 300 117 Entry Location Entry Primary Successful Side Size (Fr) Upsize Upsize Entry Closure S uccessful Closure Location 1 (Fr) 2 (Fr) Remarks Device Remarks Femoral Right 5 Fr Exoseal artery Femoral Left 7 Fr 7 Fr Exoseal artery Mid-Length Short Estimated blood loss: 10 ml Diagnostic catheters Device Type Used For End Catheter Placement Cordis Tempo 5Fr UF Procedure catheter Procedure Complications No complications Procedure Medications Medication Administration Route Dosage Oxygen NC 2 l/min Heparin Flush Bag added to field 2 bags (1000units/500ml NS) 0.9% NaCl I.V. 100 ml/hr Lidocaine 2% added to field 20 Versed I.V. 1 mg Fentanyl I.V. 50 mcg Versed I.V. 1 mg Fentanyl I.V. 50 mcg Fentanyl I.V. 50 mcg Heparin Bolus I.V. 5000 units Integrilin (Bolus I.V. 9 ml 2mg/ml) Fentanyl I.V. 50 mcg Brilinta P.O. 180 mg Hemodynamics Rest HGB: 11.2 (g/dl) Heart Rate: 79 (bpm) Snapshots Pre Cath Intra NCS Post Cath Vital Signs Time Heart Resp SPO2 etCO2 RS0sadz NIBP (mmHg) Rhythm Pain Sedation Rate (ipm) (%) (mmHg) (mmHg) Status Level (bpm) 13:56:53 81 15 98 0 0 133/72(100) A-Fib 0 (11) 10(A) , No pain 14:01:12 78 16 100 0 0 124/65(90) A-Fib 0 (11) 10(A) , No pain 14:05:30 60 17 98 0 0 116/57(91) A-Fib 0 (11) 10(A) , No pain 14:09:41 77 17 95 0 0 107/67(86) A-Fib 0 (11) 10(A) , No pain 14:13:53 84 16 94 0 0 99/52(75) A-Fib 0 (11) 9(A) , No pain 14:17:59 83 16 98 0 0 116/60(82) A-Fib 0 (11) 9(A) , No pain 14:22:13 84 17 97 0 0 108/59(87) A-Fib 0 (11) 9(A) , No pain 14:26:27 80 16 97 0 0 104/47(68) A-Fib 0 (11) 9(A) , No pain 14:30:39 84 17 98 0 0 99/50(88) A-Fib 0 (11) 10(A) , No pain 14:34:47 77 5 99 0 0 107/58(80) A-Fib 0 (11) 10(A) , No pain 14:38:51 74 7 99 0 0 107/54(82) A-Fib 0 (11) 10(A) , No pain 14:42:57 99 0 0 No Cuff A-Fib 0 (11) 10(A) , No pain Medications Time Medication Route Dose Verified Delivered Reason Notes Effectiveness by by 13:56:10 Oxygen NC 2 Matty Matty Per physician l/min Arsh Caban RN RN 13:56:19 Heparin Flush added 2 Matty Matty used for Bag to bags Arsh Caban RN procedure (1000units/500ml field RN NS) 13:56:30 0.9% NaCl I.V. 100 Matty Matty Per physician ml/hr Arsh Caban RN RN 13:59:47 Lidocaine 2% added 20ml Matty Jamil for local to vial Arsh Ferguson anesthetic field SILVIA GRANT 14:06:22 Versed I.V. 1 mg Matty Buffie for sedation Arsh Amador RN RN 14:06:28 Fentanyl I.V. 50 Matty Buffie for sedation mcg Arsh Amador RN RN 14:10:49 Versed I.V. 1 mg Matty Buffie for sedation Arsh Amador RN RN 14:10:52 Fentanyl I.V. 50 Matty Buffie for sedation mcg Arsh Amador RN RN 14:16:22 Fentanyl I.V. 50 Matty Buffie for sedation mcg Arsh Amador RN RN 14:17:28 Heparin Bolus I.V. 5000 Matty Buffie for verifi ed units Arsh Amador RN anticoagulation with dr SILVIA dinh 14:19:46 Integrilin I.V. 9 ml Matty Buffie for Wasted 1 (Bolus 2mg/ml) Arsh Amador RN antiplatelet ml of RN therapy vial 14:23:15 Fentanyl I.V. 50 Matty Duron for sedation mcg Arsh Amador RN RN 14:33:22 Brilinta P.O. 180 Matty Duron for mg Arsh Amador RN antiplatelet RN therapy Procedure Log Time Note 13:44:11 Diagnostic Cath Status : Elective 13:44:45 Matty Caban RN sent for patient. Start room use. 13:44:46 Time tracking: Regular hours 13:44:50 Plan of Care:Hemodynamics will remain stable., Cardiac rhythm will remain stable., Comfort level will be maintained., Respiratory function will remain adequate., Patient/ family verbilizes understanding of procedure., Procedure tolerated without complication., Recovers from procedure without complications.. 13:47:17 Patient received from Pre/Post Procedure Room to CCL 1 Alert and oriented. Tansferred to table in Supine position. 13:47:20 Warm blankets applied, and oswaldo hugger turned on for patient comfort. 13:47:21 Correct patient and procedure confirmed by team. 13:47:24 Signed procedure consent form obtained from patient. 13:47:25 ECG and BP/O2 sat monitors applied to patient. 13:47:31 Previous problem with sedation/anesthesia? No ? 13:47:32 Snore? Yes 13:47:33 Sleep apnea? No 13:47:34 Deviated septum? No 13:47:35 Opens mouth fully? Yes 13:47:36 Sticks out tongue? Yes 13:47:37 Airway obstruction? No ? 13:47:53 Dentures? Yes in tight 13:48:03 Is patient on blood thinner?Yes 13:48:06 ACC The patient was administered the following blood thiners within the last 24 hours: ACCAspirin 13:48:07 Patient diabetic? No. 13:55:46 Vital chart was started 13:56:10 Oxygen 2 l/min NC was administered by Matty Caban RN; Per physician; 13:56:19 Heparin Flush Bag (1000units/500ml NS) 2 bags added to field was administered by Matty Caban RN; used for procedure; 13:56:30 0.9% NaCl 100 ml/hr I.V. was administered by Matty Caban RN; Per physician; 13:59:47 Lidocaine 2% 20ml vial added to field was administered by Jamil Ferguson MD; for local anesthetic; 14:00:05 Baseline sample Acquired. 14:00:30 Rhythm: atrial fibrillation 14:02:22 H&P Date Dictated: 05/12/2016 Within 30 days and on chart., H&P Addendum completed by physician on day of procedure. (MUST COMPLETE FOR ALL OUTPATIENTS). 14:02:25 Pre-procedure instructions explained to patient. 14:02:29 Pre-op teaching completed and patient verbalized understanding. 14:02:32 Family in waiting room. 14:02:34 Patient NPO since Midnight. 14:02:45 Patient allergic to Other allergyiodine, plavix 14:02:48 Is the patient allergic to Iodine/contrast media? Yes. 14:02:49 Was the patient premedicated? Yes 14:02:59 Pre procedure: right dorsailis pedis pulse 1+ Palpable, but thready & weak; easily obliterated 14:03:03 Pre procedure: left dorsailis pedis pulse Doppler 14:03:07 Patient pain scale 0/10 ?. 14:03:16 IV patent on arrival in left forearm with 0.9% NaCl at [facility]. 14:03:56 Lab Result : BUN 40 mg/dl 14:03:56 Lab Result : Creatinine 1.5 mg/dl 14:03:56 Lab Result : Hemoglobin 11.2 g/dl 14:03:56 Lab Result : Hematocrit 32.9 % 14:03:59 Lab results completed and on chart. 14:04:02 Bilateral groins area was prepped with chlora-prep and draped in sterile fashion 14:04:05 Alarms reviewed by R. N. 14:04:05 Sharps counted by scrub and verified by R.N. 14:04:12 Tegaderm 4 x 4 opened to sterile field. 14:04:13 Acist Manifold opened to sterile field. 14:04:14 Acist Hand Control opened to sterile field. 14:04:15 Acist Syringe opened to sterile field. 14:04:16 Bag Decanter opened to sterile field. 14:04:16 Medline Cath Pack opened to sterile field. 14:04:17 Terumo 5Fr Sodus Sheath opened to sterile field. 14:04:17 St Abhishek 260cm J .035 wire opened to sterile field. 14:05:34 Physician arrived 14:05:34 --------ALL STOP TIME OUT------ 14:05:35 Final Timeout: patient, procedure, and site verified with staff and physician. All members of the team are in agreement. 14:05:36 Bilateral groins site verified by team. 14:05:39 Physical assessment completed. ASA score P 2 - A patient with mild systemic disease as per Jamil Ferguson MD. 14:05:42 Sedation plan: IV Moderate Sedation Versed, Fentanyl 14:06:22 Versed 1 mg I.V. was administered by Oliverio Amador RN; for sedation; 14:06:28 Fentanyl 50 mcg I.V. was administered by Oliverio Amador RN; for sedation; 14::16 Procedure started. 14::16 Full Disclosure recording started 14:09:18 Local anesthetic to right femoral artery with Lidocaine 2% by Jamil Ferguson MD.INITIAL ACCESS ONLY 14:09:27 A 5 Fr sheath was inserted into the Right Femoral artery 14:09:47 Cook [facility] FIRM 260CM glide wire opened to sterile field. 14:10:24 Terumo TORQUE DEVICE PLASTIC .038 opened to sterile field. 14:10:35 glide wire advanced. 14:10:44 A Cordis Tempo 5Fr UF catheter was advanced over the wire and used for Procedure. 14:10:49 Versed 1 mg I.V. was administered by Oliverio Amador RN; for sedation; 14:10:52 Fentanyl 50 mcg I.V. was administered by Oliverio Amador RN; for sedation; 14:10:54 Wire removed. 14:11:38 Abdominal Aortagram was performed. 14:12:15 Left leg runoff performed. 14:14:32 Cordis 7 Fr 23cm Brite Tip Sheath opened to sterile field. 14:14:42 Local anesthetic to left femerol artery with Lidocaine 2% by Jamil Ferguson MD.ADDITIONAL ACCESS 14:15:54 Terumo 7Fr Sodus Sheath opened to sterile field. 14:16:06 Merit BasixCompak Inflation Kit opened to sterile field. 14:16:22 Fentanyl 50 mcg I.V. was administered by Oliverio Amador RN; for sedation; 14:16:23 A 7 Fr Mid-Length sheath was inserted into the Left Femoral artery 14:17:28 Heparin Bolus 5000 units I.V. was administered by Oliverio Amador RN; for anticoagulation; verified with dr dinh 14:19:46 Integrilin (Bolus 2mg/ml) 9 ml I.V. was administered by Oliverio Amador RN; for antiplatelet therapy; Wasted 1 ml of vial 14:21:32 glide wire advanced. 14:21:34 Wire advanced across lesion. 14:22:13 Inflation number: 1 A Cordis Powerflex Pro 7.0 x 40 x 135cm balloon was prepped and advanced across the Ostial Internal Iliac, Left, then inflated to 8 NANCY for 0:28 (min:sec). 14:23:15 Fentanyl 50 mcg I.V. was administered by Oliverio Amador RN; for sedation; 14:23:20 Balloon removed over the wire. 14:25:41 Inflation Number: 2 A Cordis Layla 8 x 39 x 135 stent was prepped and advanced across the Ostial Internal Iliac, Left. The stent was deployed at 10 NANCY for 0:24 (min:sec). 14:26:34 Stent catheter was removed intact over wire. 14:26:36 Wire removed. 14:27:12 UF Catheter removed 14:27:24 Sheath upsized to a 7 Fr Short. 14:27:38 Sheath removed intact; hemostasis achieved with Exoseal to the Right Femoral artery. 14:27:44 Sheath removed intact; hemostasis achieved with Exoseal to the Left Femoral artery. 14:27:46 Procedure ended.(Physican Out) 14:33:22 Brilinta 180 mg P.O. was administered by Oliverio Amador RN; for antiplatelet therapy; 14:38:45 Tegaderm 4 x 4 opened to sterile field. 14:42:04 Fluoroscopy time 04.20 minutes. 14:42:10 Fluoroscopy dose: 315 mGy 14:42:10 Flurop Dose total: 315 14:42:31 Contrast amount:Isovue 300 117ml. 14:42:32 Sharps counted by scrub and verified by R.N. 14:42:34 Insertion/operative site no bleeding no hematoma. 14:42:37 Post-op/insertion site Right Femoral artery dressed using a 4 x 4 and Tegaderm. 14:42:41 Vital chart was stopped 14:42:49 Post-op/insertion site Left Femoral artery dressed using a 4 x 4 and Tegaderm. 14:42:53 Post right femoral artery:stable, soft, clean and dry 14:43:01 Post left femerol artery:stable, soft, clean and dry 14:43:02 Post Procedure Pulses reassessed and unchanged 14:43:05 Post-procedure physical assessment completed. ASA score P 2 - A patient with mild systemic disease as per Jamil Ferguson MD. 14:43:07 Post procedure rhythm: unchanged. 14:43:09 Estimated blood loss: 10 ml 14:43:11 Post procedure instruction explained to patient.Patient verbalizes understanding. 14:43:11 Patient needs reinforcement of post procedure teaching. 14:46:06 Procedure type changed to Cath procedure, Miscellaneous Procedures, Moderate Sedation up to 30 minutes, Peripheral Cath Diagnostic Procedure, Cath Peripheral, Nqpae-Vkenaji-Iwh-Off, Peripheral vascular Intervention, Stent, Stent Iliac w/plasty Initial 14:46:56 Cordis 7Fr Exoseal opened to sterile field. 14:46:57 Cordis 5Fr Exoseal opened to sterile field. 14:47:28 Procedure and supply charges have been captured, reviewed, submitted and are correct. 14:47:31 Procedure Complication : No complications 14:47:33 See physician's report for complete and final results. 14:47:34 Report given to Pre/Post Procedure Room. 14:47:37 Patient transfered to Pre/Post Procedure Room with Stretcher. 14:47:40 Procedure ended. 14:47:40 Full Disclosure recording stopped 14:47:51 End room use (Document Last) Intervention Summary Intervention Notes Time ActionType Lesion and Equipment Action# Pressure Duration Attributes Used 14:22:13 Inflate Ostial Cordis 1 8 00:28 balloon Internal Powerflex Iliac, Left Pro 7.0 x 40 x 135cm balloon 14:25:41 Place stent Ostial Cordis 2 10 00:24 Internal Layla 8 Iliac, Left x 39 x 135 stent Device Usage Item Name Manufacture Quantity Catalog Hospital Part Current Minimal L ot# / Number Charge Number Stock Stock Serial# Code Tegaderm 4 2 [id number] [id number] [id number] 5 x 4 Acist Acist 1 37925 027595 031127 106830 5 Bountysource Acist Hand Acist 1 78127 412017 087022 543201 5 Control Medical Systems Inc Acist Acist 1 69610 136511 286187 810937 20 Syringe Medical Systems Inc Bag Microtek 1 2002S 226816 69755 282212 5 Decanter Medical Inc. Medline Cardinal 1 [id number] 300602 39947 891967 5 Cath Pack Health Terumo 5Fr Terumo 1 [id number] 713646 480866 229561 [address] Abhishek 1 301955 612040 201340 649949 30 260cm J .035 wire Cook Cook [employer] 1 [id number] 227326 140540 5 ROADRUNNER FIRM 260CM glide wire Terumo [place] 1 TD01 156506 326345 363261 5 TORQUE Scientific DEVICE PLASTIC .038 Cordis Cardinal 1 [id number] 617133 231784 192240 10 Tempo 5Fr Health UF catheter Cordis 7 Fr Cardinal 1 [id number] 855454 1481942 0 23cm Brite Health Tip Sheath Terumo 7Fr Terumo 1 [id number] 145281 367458 141308 5 Sodus Sheath [facility] 1 [id number] 199922 405088 710485 15 Brain Parade Medical Inflation Kit Cordis Cardinal 1 [id number] 713740 933275 024719 5 Powerflex Health Pro 7.0 x 40 x 135cm balloon Cordis Cardinal 1 [id number] 590240 018458 226212 5 1 [id number] Layla 8 x Health 39 x 135 stent Cordis 7Fr Cardinal 1 EX700 770773 187719 752201 5 Exoseal Health Cordis 5Fr Cardinal 1 EX500 377675 698606 806285 10 Exoseal Health Signature Audit [place] Stage Time Signature Unsigned Intra-Procedure 06/02/2016 Adarsh Neri 2:48:30 PM RT(R) Signatures Monitor : Adarsh Neri RT Signature : Date : Time : [facility] [address] [place] [address]
[~2016-06-02 11:13] MED LIST changes: -BETAPACE 80 MG80 MG PO; -DOXYCYCLINE HY100 M2 PO; -PREDNISONE20 MG PO
[2016-06-02] MEDS ORDERED: BETAPACE 80 MG80 MG PO (11:52)
[2016-06-02] MEDS ORDERED: PREDNISONE20 MG PO (11:53)
[2016-06-02 11:59] VITALS: BP 132/69; Ht 182.9 cm; Wt 100.5 kg
[2016-06-02] MEDS ORDERED: DOXYCYCLINE HY100 M2 PO (12:02)
[2016-06-02 12:06] LABS: BASOPHILS 0 % (0.0-2.0); EOSINOPHILS 0 % (0-7); HEMATOCRIT 32.9 % (42.0-54.0); HEMOGLOBIN 11.2 g/dL (13.5-17.5); IMMATURE GRANULOCYTES 0.3 % (0-5); LYMPHOCYTES 7.1 % (15-50); MCH 32.5 pg (26.0-34.0); MCV 95.4 fL (80.0-100.0); MEAN PLATELET VOLUME 10.1 fL (7.4-10.4); MONOCYTES 6.3 % (2-11); NEUTROPHILS 86.3 % (40-80); PLATELET COUNT 184 10x3/uL (130-400); RBC 3.45 10x6/uL (4.20-6.10); RDW 13.7 % (11.5-14.5)
[2016-06-02 12:16] LABS: ANION GAP 17.2 mmol/L (8-16); CALCIUM 8.8 mg/dL (8.5-10.1); CARBON DIOXIDE 21.6 mmol/L (21.0-32.0); CREATININE - SERUM 1.5 mg/dL (0.6-1.3); POTASSIUM - SERUM 3.8 mmol/L (3.5-5.1)
--- NOTE | 2016-06-02 17:47 | NUR ---
1500-RIGHT AND LEFT GROINS CDI, NO HEMATOMA OR BLEEDING NOTED, SOFT TO TOUCH. 1530- NO CHANGES IN GROINS
--- NOTE | 2016-06-02 19:09 | NUR ---
1830-UP TO RESTROOM-VOID, GROINS CDI. IV D'C WITH CATH TIP INTACT, WRITTEN AMD VERBAL INSTRUCTIONS GIVEN TO PT AND FRIEND. VERBAL UNDERSTANDING NOTED.
--- NOTE | 2016-06-04 08:22 | OP ---
PATIENT NAME: ROSMERY SHEFFIELD MEDICAL RECORD: [id number] :45 LOCATION:D.CAT ADMISSION DATE: SURGEON: VERO MARTINES MD DATE OF OPERATION: 06/02/2016 PROCEDURE: Aortofemoral runoff with intervention of the left iliac. FINDINGS: Abdominal aorta shows no significant aneurysm, no significant plaque buildup. RIGHT SYSTEM: Right common iliac shows maybe 70% stenosis in its mid portion, this was thought to be non-flow obstructive on CTA. The ____ internal iliac is without significant disease. Right common femoral was without significant disease. Right deep femoral, no significant disease. Right superficial femoral was without disease, this gives rise to 3-vessel runoff. LEFT SYSTEM: Left common iliac shows a stenosis as described in previous CTA of 90%. Left common femoral shows no significant stenosis. Left deep femoral, no significant stenosis. Left superficial femoral, no significant stenosis and gives rise to 3-vessel runoff. 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 PLAN: Intervention of this vessel momentarily. DESCRIPTION OF PROCEDURE: We placed a 7-Romansh Brite Tip sheath into the left femoral artery and then, a 6.0 x 40 balloon was inflated up to 10 atmospheres pre-deployment. Next, an 8 x 39 Layla stent was inflated up to 12 atmospheres. Final injection shows excellent resolution of 90% stenosis. No significant residual, much better runoff distally. Sheath was closed with ExoSeal device. Brilinta was loaded in the lab. TRANSINT:[id number] Voice Confirmation ID: [id number] DOCUMENT ID: [id number] VERO MARTINES MD at 0822 CC: [id number] DICTATION DATE: 06/02/16 144 MASTER CERTIFIED RV TECHNICIAN: 06/02/164 DEP CLI 06/02/16 [id number] [place] [address]
== END 2016-06-02 19:00 | disposition home or self-care (01) ==
LOC: D.CATH 11:13
PROVIDERS: Internal Medicine Interventional Cardiology
DX: I70.213 Atherosclerosis of native arteries of extremities with intermittent claudication, bilateral legs (principal); I25.10 Atherosclerotic heart disease of native coronary artery without angina pectoris; I10 Essential (primary) hypertension; R07.9 Chest pain, unspecified

== ENCOUNTER 2016-07-05 18:00 | Emergency (ER) | payer MEDICARE ==
[~2016-07-05 18:00] MED LIST changes: +BETAPACE 80 MG80 MG PO; +DOXYCYCLINE HY100 M2 PO; +PREDNISONE20 MG PO
[2016-07-05 19:57] LABS: BASOPHILS 0.5 % (0-2); EOSINOPHILS 5.2 % (0-7); HEMATOCRIT 33.1 % (42.0-54.0); IMMATURE GRANULOCYTES 0.4 % (0-5); LYMPHOCYTES 25.9 % (15-50); MCH 32.2 pg (26.0-34.0); MCHC 33.2 g/dL (31.0-37.0); MCV 96.8 fL (80.0-100.0); MEAN PLATELET VOLUME 9.2 fL (7.4-10.4); MONOCYTES 13.2 % (2-11); NEUTROPHILS 54.8 % (40-80); PLATELET COUNT 201 10x3/uL (130-400); RBC 3.42 10x6/uL (4.20-6.10); RDW 13.5 % (11.5-14.5); WBC 5.6 10x3/uL (4.8-10.8)
[2016-07-05 20:19] LABS: ALBUMIN 4.1 g/dL (3.4-5.0); ANION GAP 16.1 mmol/L (8-16); BILIRUBIN - TOTAL 0.43 mg/dL (0.2-1.3); CALCIUM 10.5 mg/dL (8.5-10.1); CARBON DIOXIDE 25.6 mmol/L (21.0-32.0); CREATININE - SERUM 1.6 mg/dL (0.6-1.3); POTASSIUM - SERUM 4.7 mmol/L (3.5-5.1); PROTEIN - SERUM 7.7 g/dL (6.4-8.2)
[2016-07-05 20:52] LABS: APPEARANCE CLEAR (CLEAR); BILIRUBIN NEGATIVE (NEGATIVE); COLOR YELLOW (YELLOW); GLUCOSE NEGATIVE (NEGATIVE); KETONE SMALL mg/dL (NEGATIVE); LEUKOCYTE ESTERASE NEGATIVE (NEGATIVE); NITRITE NEGATIVE (NEGATIVE); PROTEIN NEGATIVE (NEGATIVE); SPECIFIC GRAVITY 1.015 (1.005-1.020); UROBILINOGEN NORMAL (NORMAL)
[2016-07-05 20:59] LABS: UDS - AMPHET NEGATIVE QUAL (NEGATIVE); UDS - BARB NEGATIVE QUAL (NEGATIVE); UDS - BENZO NEGATIVE QUAL (NEGATIVE); UDS - COCAINE NEGATIVE QUAL (NEGATIVE); UDS - METH NEGATIVE QUAL (NEGATIVE); UDS - OPIATE POSITIVE QUAL (NEGATIVE); UDS - PCP NEGATIVE QUAL (NEGATIVE); UDS - THC NEGATIVE QUAL (NEGATIVE)
== END 2016-07-05 21:58 | disposition home or self-care (01) ==
LOC: D.ER 18:00
PROVIDERS: Physician Assistant Medical
DX: T65.91XA Toxic effect of unspecified substance, accidental (unintentional), initial encounter (principal); Y92.019 Unspecified place in single-family (private) house as the place of occurrence of the external cause; I10 Essential (primary) hypertension; E03.9 Hypothyroidism, unspecified; F17.200 Nicotine dependence, unspecified, uncomplicated

== ENCOUNTER → 2017-12-01 10:42 | Outpatient (CLI) | payer MEDICARE ==
[~2017-12-01] VITALS: Ht 182.9 cm; Wt 104.5 kg
--- NOTE | ~2017-12-01 | OP ---
PATIENT NAME: ROSMERY SHEFFIELD MEDICAL RECORD: [id number] :45 LOCATION:D.CAT ADMISSION DATE: SURGEON: VERO MARTINES MD DATE OF OPERATION: 12/01/2017 PROCEDURE: Left heart catheterization, selective coronary angiography, aortofemoral runoff, left femoral artery approach. CATHETERS: A 5-Palestinian sheath, 5/4 left and right Yvonne, pigtail catheter, multipurpose catheter for the saphenous vein graft to right. The procedure was well tolerated. The patient returned to the haas, sheath removed. ExoSeal device placed. FINDINGS: Left ventriculography, 30-degree ANDRADE view shows severe global hypokinesis, LV function is markedly reduced 20%. CORONARY ANATOMY: LEFT MAIN: Left the main is free of disease. LAD AND LEFT MAIN: Both area of previous stenting are widely patent. 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 Saphenous vein graft is widely patent. Previous stenting is widely patent and help fill the circumflex distally via collaterals. The catheter was pulled to level of the renal arteries and aortofemoral runoff was performed. RIGHT SYSTEM: Right iliac system shows some minimal wall disease, no obstruction greater than 50%. RIGHT FEMORAL SYSTEM: It is actually very smooth walled with good runoff distally. LEFT ILIAC: This showed a widely patent stent without evidence of restenosis. Femoral system is widely patent with no progression of inaja disease and good 2-vessel runoff distally. IMPRESSION: No evidence of restenosis either cardiac or lower extremity intervention, markedly decreased LV function that was improving LV function. We will begin Aldactone, possibly add carvedilol at a later date. Baseline ECG shows normal QRS duration. The patient might not receive benefit from resynchronization therapy. We will reevaluate LV function at 3 months. TRANSINT:[id number] Voice Confirmation ID: [id number] DOCUMENT ID: [id number] VERO MARTINES MD at 0802 CC: [id number] DICTATION DATE: 12/01/17 1445 SHELLAC POLISHER: 12/01/17 1830 DEP CLI 12/01/17 [facility] [address] [place] [address]
--- NOTE | ~2017-12-01 | HEMODYNAMI ---
PATIENT:ROSMERY SHEFFIELD MEDICAL RECORD: [id number] : 45 LOCATION:[facility] ADMISSION DATE: 12/01/17 Generatedon:12/01/201714:34 Patient name: ROSMERY SHEFFIELD Patient #: [id number] : 1945 Date of study: 12/01/2017 Page: Of Hemodynamic Procedure Report Patient Data Patient Demographics Procedure consent was obtained First Name: ROSMERY Gender: Male Last Name: NETTIE : 1945 [facility] Initial: GRETTA Age: 72 year(s) Patient #: [id number] Race: SSN: [id number] Additional ID: [id number] Contact details [address]: [address] [place] [address] State: [place] City: [place] Zip code: [address] Past Medical History Allergies Allergen Reaction Date Comments Reported Iodine 04/08/2016 Other allergy 04/20/2016 iodine Other allergy 06/02/2016 iodine, plavix Other allergy 12/01/2017 Iodine, Plavix Admission Admission Data Admission Date: 12/01/2017 Admission Time: 10:42 Lab Results Lab Result Date: 12/01/2017 Lab Result Time: 0:00 Biochemistry Name Units Result Min Max BUN mg/dl 16 --(---*)-- 7 18 Creatinine mg/dl 1.1 --(--*-)-- 0.6 1.3 CBC Name Units Result Min Max Hemoglobin g/dl 13.4 -*(----)-- 13.5 17.5 Procedure Procedure Types Cath Procedure Diagnostic Procedure LHC LHC w/Coronaries w/Grafts Sedation Charges Moderate Sedation up to 15 minutes Peripheral Cath Diagnostic Procedure Gag Writer Peripheral Procedures Kwsud-Ycwjafx-Nra-Off Procedure Description Procedure Date Procedure Date: 12/01/2017 Procedure Start Time: 14:15 Procedure End Time: 14:30 Procedure Staff Name Function Jamil Young MD Performing Physician Kristen Hanson RT Monitor Remedios Hernandez RT Scrub Matty Caban RN Nurse Procedure Data Cath Procedure Fluoroscopy Diagnostic fluoroscopy Total fluoroscopy Time: 3 time: 3 min min Diagnostic fluoroscopy Total fluoroscopy dose: 961 dose: 961 mGy mGy Contrast Material Contrast Material Type Amount (ml) Isovue 300 133 Entry Location Entry Primary Successful Side Size Upsize Upsize Entry Closure Succes sful Closure Location (Fr) 1 (Fr) 2 (Fr) Remarks Device Remarks Femoral Left 5 Fr Exoseal artery Estimated blood loss: 5 ml Diagnostic catheters Device Type Used For End Catheter Placement MULTIPACK JL 4.0 5Fr Left Coronary catheter Angiography MULTIPACK 3DRC 5Fr Right Coronary catheter Angiography MULTIPACK Pigtail 5 Fr Multi-vessel catheter Angiography DIAGNOSTIC MPA-2 5Fr Right Coronary catheter ([id number]) Angiography Procedure Complications No complications Procedure Medications Medication Administration Route Dosage Oxygen etCO2 Nasal cannula 2 l/min Heparin Flush Bag added to field 2 bags (1000units/500ml NS) 0.9% NaCl I.V. 100 ml/hr Fentanyl I.V. 100 mcg Versed I.V. 2 mg Fentanyl I.V. 100 mcg Versed I.V. 2 mg Hemodynamics Rest HGB: 13.4 (g/dl) Heart Rate: 88 (bpm) Pressure Samples Time Site Value (mmHg) Purpose Heart Use Rate(bpm) 14:22 LV 147/13,18 Snapshot 60 14:22 AO 140/53(86) Pullback 73 14:22 LV 123/13,18 Pullback 73 Gradients Valve Time Site 1 Site 2 Mean SEP/DFP Peak To Heart Use (mmHg) (sec/min) Peak Rate (mmHg) (bpm) Aortic 14:22 LV AO 0 10 0 73 123/13,18 140/53(86) Calculations Valve P-P Mean Valve Index Valve Source Name Gradient Area Flow (cm2) Aortic 0 0 0 0 Snapshots Pre Cath Intra NCS Post Cath Vital Signs Time Heart Resp SPO2 etCO2 NIBP (mmHg) Rhythm Pain Sedation Rate (ipm) (%) (mmHg) Status Level (bpm) 13:57:34 86 16 97 0 157/105(124) NSR 0 (11) 10(A) , No pain 14:02:00 80 16 100 23.5 168/76(132) NSR 0 (11) 10(A) , No pain 14:07:16 71 17 96 6 132/77(108) NSR 0 (11) 10(A) , No pain 14:11:34 68 17 96 19 128/74(107) NSR 0 (11) 10(A) , No pain 14:15:50 69 16 96 11.4 143/72(108) NSR 0 (11) 9(A) , No pain 14:20:01 73 17 92 25 127/78(97) NSR 0 (11) 9(A) , No pain 14:24:20 75 16 97 33.4 128/67(103) NSR 0 (11) 9(A) , No pain 14:28:36 73 17 97 25.8 140/75(116) NSR 0 (11) 9(A) , No pain 14:31:54 72 17 97 18.9 143/83(116) NSR 0 (11) 9(A) , No pain Medications Time Medication Route Dose Verified Delivered Reason Notes Effe ctiveness by by 14:01:27 Oxygen etCO2 2 Jamil Matty Per Nasal l/min St Corby Caban RN physician cannula 14:01:36 Heparin Flush added 2 Jamil Matty used for Bag to bags St Corby Caban RN procedure (1000units/500ml field NS) 14:01:45 0.9% NaCl I.V. 100 Jamil Matty Per ml/hr St Corby Caban RN physician 14:11:01 Fentanyl I.V. 100 Jamil Matty [place] [facility] [place] Caban RN sedation 14:11:08 Versed I.V. 2 mg Jamil Matty for St Corby Caban RN sedation 14:15:51 Fentanyl I.V. 100 Jamil Matty [place] [facility] [place] [facility]by Caban RN sedation 14:15:55 Versed I.V. 2 mg Jamil Matty for St Corby Caban RN sedation Procedure Log Time Note 13:29:23 Diagnostic Cath Status : Elective 13:40:18 Remedios Hernandez RT(R) sent for patient. Start room use. 13:51:26 Time tracking: Regular hours (M-F 7:00 - 5:00) 13:51:33 Plan of Care:Hemodynamics will remain stable., Cardiac rhythm will remain stable., Comfort level will be maintained., Respiratory function will remain adequate., Patient/ family verbilizes understanding of procedure., Procedure tolerated without complication., Recovers from procedure without complications.. 13:51:50 Patient received from Pre/Post Procedure Room to CCL 2 Alert and oriented. Tansferred to table in Supine position. 13:51:51 Warm blankets applied, and oswaldo hugger turned on for patient comfort. 13:51:51 Correct patient and procedure confirmed by team. 13:51:53 Signed procedure consent form obtained from patient. 13:51:54 ECG and BP/O2 sat monitors applied to patient. 13:55:33 Vital chart was started 13:55:34 Baseline sample Acquired. 13:55:37 Rhythm: sinus rhythm 13:55:39 Full Disclosure recording started 13:55:46 H&P Date Dictated: 11/21/2017 Within 30 days and on chart., H&P Addendum completed by physician on day of procedure. (MUST COMPLETE FOR ALL OUTPATIENTS). 13:55:48 Pre-procedure instructions explained to patient. 13:55:50 Family in waiting room. 13:55:52 Patient NPO since Midnight. 13:56:09 Patient allergic to Other allergyIodine, Plavix 13:56:11 Is the patient allergic to Iodine/contrast media? Yes. 13:56:12 Was the patient premedicated? Yes 13:56:16 Is patient on blood thinner?No 13:56:18 Patient diabetic? No. 13:56:21 Snore? Yes 13:56:24 Sleep apnea? No 13:56:29 Dentures? No ? 13:56:34 Patient pain scale 0/10 ?. 13:56:41 IV patent on arrival in right forearm with 0.9% NaCl at KVO. 13:56:45 Lab results completed and on chart. 13:56:50 Bilateral groins area was prepped with chlora-prep and draped in sterile fashion 13:56:51 Alarms reviewed by R. N. 13:56:52 Sharps counted by scrub and verified by R.N. 13:56:53 Physician paged 14:00:11 Lab Result : Creatinine 1.1 mg/dl 14:00:11 Lab Result : BUN 16 mg/dl 14:00:11 Lab Result : Hemoglobin 13.4 g/dl 14:01:27 Oxygen 2 l/min etCO2 Nasal cannula was administered by Matty Caban RN; Per physician; 14:01:36 Heparin Flush Bag (1000units/500ml NS) 2 bags added to field was administered by Matty Caban RN; used for procedure; 14:01:45 0.9% NaCl 100 ml/hr I.V. was administered by Matty Caban RN; Per physician; 14:01:59 Baseline sample Acquired. 14:10:03 Physician arrived 14:10:03 --------ALL STOP TIME OUT------ 14:10:03 Final Timeout: patient, procedure, and site verified with staff and physician. All members of the team are in agreement. 14:10:05 Bilateral groins site verified by team. 14:10:08 Physical assessment completed. ASA score P 2 - A patient with mild systemic disease as per Jamil Young MD. 14:10:12 Sedation plan: IV Moderate Sedation Medication:Versed, Fentanyl 14:10:15 Use device set Femoral Dx 14:10:16 ACIST Syringe (89622) opened to sterile field. 14:10:17 Bag Decanter (2002S) opened to sterile field. 14:10:17 Medline Cath Pack ([id number]) opened to sterile field. 14:10:18 DIAGNOSTIC WIRE .035 260cm J wire (440678) opened to sterile field. 14:10:19 ACIST Hand Control (01626) opened to sterile field. 14:10:20 ACIST Manifold (76692) opened to sterile field. 14:10:20 DIAGNOSTIC Multipack 5Fr catheter set ([id number]) opened to sterile field. 14:10:21 Tegaderm 4 x 4 (1626W) opened to sterile field. 14:10:23 SHEATH Prelude 5Fr 0.035 (SER-0V-17-035) opened to sterile field. 14:10:28 Zero performed for pressure channel P1 14:11:01 Fentanyl 100 mcg I.V. was administered by Matty Caban RN; for sedation; 14:11:08 Versed 2 mg I.V. was administered by Matty Caban RN; for sedation; 14:15:26 Procedure started. 14:15:41 Local anesthetic to left femerol artery with Lidocaine 2% by Jamil Young MD.INITIAL ACCESS ONLY 14:15:51 Fentanyl 100 mcg I.V. was administered by Matty Caban RN; for sedation; 14:15:55 Versed 2 mg I.V. was administered by Matty Caban RN; for sedation; 14:16:40 A 5 Fr sheath was inserted into the Left Femoral artery 14:17:33 A MULTIPACK JL 4.0 5Fr catheter was advanced over the wire and used for Left Coronary Angiography. 14:17:56 LCA angiography performed. 14:17:59 Injector settings: Ml/sec: 3, Volume: 6, 14:19:25 Catheter removed. 14:19:34 A MULTIPACK 3DRC 5Fr catheter was advanced over the wire and used for Right Coronary Angiography. 14:21:34 Catheter removed. 14:22:01 A MULTIPACK Pigtail 5 Fr catheter was advanced over the wire and used for Multi-vessel Angiography. 14:22:20 LV hemodynamics recorded. 14:22:22 LV gram done using ANDRADE 14:22:25 Injector settings: Ml/sec: 5, Volume: 15, 14:22:46 EF : 20 % 14:23:51 Abdominal angiogram w/ runoff was performed. 14:25:59 Catheter removed. 14:26:14 A DIAGNOSTIC MPA-2 5Fr catheter ([id number]) was advanced over the wire and used for Right Coronary Angiography. 14:27:56 SVG angiography performed. 14:28:04 Catheter removed. 14:28:17 EXOSEAL 5Fr (EX500) opened to sterile field. 14:28:28 Sheath removed intact; hemostasis achieved with Exoseal to the Left Femoral artery. 14:28:30 Procedure ended.(Physican Out) 14:28:38 Fluoroscopy time 03.00 minutes. 14:29: Flurop Dose total: 961 14:: Fluoroscopy dose: 961 mGy 14:: Contrast amount:Isovue 300 133ml. 14:29:29 Sharps counted by scrub and verified by R.N. 14:29:31 Insertion/operative site no bleeding no hematoma. 14:29:34 Post-op/insertion site Left Femoral artery dressed using a 4 x 4 and Tegaderm. 14:29:38 Post left femerol artery:stable 14:29:40 Post Procedure Pulses reassessed and unchanged 14:29:42 Post procedure rhythm: unchanged. 14:29:45 Estimated blood loss: 5 ml 14:29:47 Post procedure instruction explained to patient.Patient verbalizes understanding. 14:29:47 Patient needs reinforcement of post procedure teaching. 14:30:05 Procedure type changed to Cath procedure, Diagnostic procedure, LHC, LHC w/Coronaries w/Grafts, Sedation Charges, Moderate Sedation up to 15 minutes, Peripheral Cath Diagnostic Procedure, Gag Writer Peripheral Procedures, Ituil-Ovmsjgr-Dwj-Off 14:30:06 Procedure and supply charges have been captured, reviewed, submitted and are correct. 14:30:11 Procedure Complication : No complications 14:30:13 Vital chart was stopped 14:30:14 See physician's report for complete and final results. 14:30:17 Report given to Pre/Post Procedure Room. 14:30:35 Patient transfered to Pre/Post Procedure Room with Stretcher. 14:30:38 Procedure ended. 14:30:38 Full Disclosure recording stopped 14:30:43 End room use (Document Last) Device Usage Item Name Manufacture Quantity Catalog Number Hospital Part Current M inimal Lot# / Charge Number Stock Stock Serial# Code ACIST Syringe Acist 1 51153 701636 283770 345916 2 0 (03444) [employer] Bag Decanter Microtek 1 2001S 587823 20003 606802 5 (2001S) Medical Inc. Medline Cath Medline 1 [id number] 622382 09016 813000 5 Pack ([id number]) DIAGNOSTIC WIRE St Abhishek 1 644961 775925 901710 477946 3 0 .035 260cm J wire (894259) ACIST Hand Acist 1 15344 134800 649279 382743 5 Control (21713) [employer] ACIST Manifold Acist 1 16937 332844 400354 769181 5 (38110) [employer] Inc DIAGNOSTIC Cardinal 1 [id number] 731742 40523 358167 3 0 Multipack 5Fr Health catheter set ([id number]) Tegaderm 4 x 4 3M 1 1626W 145411 258032 357787 5 (1626W) SHEATH Prelude Merit 1 DKQ-1M-91-035 702333 675229 565286 5 5Fr 0.035 Medical (JJH-6G-07-035) MULTIPACK JL Cardinal 1 212743 5 4.0 5Fr Health catheter MULTIPACK 3DRC Cardinal 1 998952 5 5Fr catheter Health MULTIPACK Cardinal 1 504812 5 Pigtail 5 Fr Health catheter DIAGNOSTIC Cardinal 1 [id number] 873860 341498 506926 5 MPA-2 5Fr Health catheter ([id number]) EXOSEAL 5Fr Cardinal 1 EX500 409584 861517 183886 1 0 (EX500) Health Signature Audit [place] Stage Time Signature Unsigned Intra-Procedure 12/01/2017 Kristen Hanson 2:34:14 PM RT(R) Signatures Monitor : Kristen Hanson RT Signature : Date : Time : [place] [id number] [place] [address]
[~2017-12-01 10:42] MED LIST changes: +COZAAR50 MG PO; +LIPITOR20 MG PO
[2017-12-01 11:02] VITALS: BP 141/73; Ht 182.9 cm; Wt 104.5 kg
[2017-12-01 11:41] LABS: HEMATOCRIT 38.1 % (42.0-54.0); HEMOGLOBIN 13.4 g/dL (13.5-17.5); MCH 31.8 pg (26.0-34.0); MCHC 35.2 g/dL (31.0-37.0); MCV 90.3 fL (80.0-100.0); NEUTROPHILS 85.7 % (40-80); PLATELET COUNT 196 10x3/uL (130-400); RBC 4.22 10x6/uL (4.20-6.10); WBC 10.5 10x3/uL (4.8-10.8)
[2017-12-01 11:56] LABS: CALCIUM 9.4 mg/dL (8.5-10.1); CARBON DIOXIDE 26.1 mmol/L (21.0-32.0); CREATININE - SERUM 1.1 mg/dL (0.6-1.3); POTASSIUM - SERUM 4.1 mmol/L (3.5-5.1)
== END | disposition home or self-care (01) ==
LOC: D.CATH 10:42
PROVIDERS: Internal Medicine Interventional Cardiology
DX: I25.110 Atherosclerotic heart disease of native coronary artery with unstable angina pectoris (principal); R06.00 Dyspnea, unspecified; I70.211 Atherosclerosis of native arteries of extremities with intermittent claudication, right leg; I70.213 Atherosclerosis of native arteries of extremities with intermittent claudication, bilateral legs

== ENCOUNTER → 2018-08-21 07:45 | Outpatient (CLI) | payer OTHER ==
[2017-12-01 11:02] VITALS: BMI 31.2
--- NOTE | ~2018-08-21 | EC ---
PATIENT:ROSMERY SHEFFIELD DATE OF SERVICE: 08/21/18 SEX: M MEDICAL RECORD: [id number] DATE OF : 45 LOCATION:[facility] AGE OF PATIENT: 72 ADMISSION DATE: 08/21/18 REFERRING PHYSICIAN: INTERPRETING PHYSICIAN: VERO MARTINES MD ECHOCARDIOGRAM REPORT ECHO CHARGES 4 ECHO COMPLETE Date: 08/21/18 CLINICAL DIAGNOSIS: CARDIOMYOPATHY H/O CAD/HTN/PVD ECHOCARDIOGRAPHIC MEASUREMENTS (adult normal given) AC root (d.<3.7cm) 3.3 cm LV Septum d (<1.2 cm> 0.9 cm Valve Excursion 2.0 cm LV Septum (systole) 1.5 cm Left Atria (s.<4.0cm> 4.9 cm LVPW d(<1.2cm) 1.1 cm RV (d.<2.3cm) 3.9 cm LVPW (sytole) 1.6 cm LV diastole(<5.6CM) 7.0 cm MV E-F(>70mm/sec) cm LV systole 5.2 cm LVOT Diameter 1.9 cm MV exc.(>10mm) cm Est.ejection fraction (50-75%) % DOPPLER: LVIT cm/sec A 41.0 cm/sec E 88.0 cm/sec LA cm/sec RVSP 40.3 mmHg LVOT 63.0 cm/sec AOP1/2T m/s Asc. Ao 155 cm/sec RVOT 60.0 cm/sec RA cm/sec PA 105 cm/sec AV Gradient Peak 9.6 mmHg AV Mean 5.4 mmHg AV Area 1.0 cm MV Gradient Peak 3.8 mmHg MV Mean 1.5 mmHg MV Area cm COMMENTS: OP - HC Metalsmith: 1 RON [place] Regional Driver: 3 Dr. Ferguson TAPE# PACS Pericardial Effusion N DATE OF SERVICE: 08/21/2018 Adequate 2-D echo, color-flow and spectral Doppler, and M-mode. No LVH. LV internal dimensions are dilated. LV is mildly globally hypokinetic with reduced EF. Estimated EF is 40%. Aortic valve sclerosis without stenosis by Doppler interrogation. Left atrium is likewise dilated at 4.7 cm. Mitral valve shows no prolapse. Mild MR. Right-sided chambers are grossly normal. Mild TR. ECHOCARDIOGRAM REPORT [id number] ROSMERY SHEFFIELD TRANSINT:[id number] Voice Confirmation ID: [id number] DOCUMENT ID: [id number] VERO MARTINES MD CC: [id number] DICTATION DATE: 08/28/18 1241 DIRECTOR OF CONSUMER AFFAIRS: 08/28/18 1251 DEP CLI 08/21/18 [place] [id number] [place] [id number]
== END | disposition home or self-care (01) ==
LOC: D.HCCARDIO 07:45
PROVIDERS: ATTEND Internal Medicine Interventional Cardiology
DX: I10 Essential (primary) hypertension (principal)

== ENCOUNTER 2019-07-15 13:11 | Outpatient (CLI) | payer OTHER ==
[~2019-07-15] VITALS: Ht 182.9 cm; Wt 100.0 kg
--- NOTE | ~2019-07-15 | CN ---
PATIENT NAME:ROSMERY WRIGHT MEDICAL RECORD: [id number] : 45 LOCATION:[facility] ADMIT DATE: ACCOUNT: [id number] CONSULTING PHYSICIAN: BHUMIKA JAMES MD REFERRING PHYSICIAN: AMY VILLEGAS MD DATE OF CONSULTATION: 07/16/2019 CHIEF COMPLAINT: Abdominal pain. HISTORY OF PRESENT ILLNESS: Mr. Wright is a 73-year-old white male who is admitted through the ER with acute onset of right lower quadrant abdominal pain, said it had gone on for a couple of days, said during that time, he was having daily bowel movements. He reports the pain was steady and unrelenting. He denies any fevers or chills. He denies any night sweats. He denies nausea or vomiting. He never really had pain like this before. He denied any blood in his stools. He said his stools were firm and small in caliber. When he was seen in the Emergency Room, concern was for appendicitis, so CT scan was performed. The CT showed a 5-mm appendix with no surrounding fatty inflammation. The patient had a large amount of stool burden throughout the colon and rectum. There were no signs of any free fluid or free air. The patient was noted to have an elevated white blood cell count, but he was also noted to have some signs of dehydration with elevated BUN and creatinine. He was admitted to the hospital on no antibiotics and given IV fluids and bowel rest. By the following morning, he had a couple of bowel movements with the help of some enemas and was overall feeling better and had near resolution of the abdominal pain. The patient's white count had normalized as well. He had no fevers that evening. PAST MEDICAL HISTORY: 1. Coronary artery disease. 2. Hypertension. 3. Arthritis. 4. Thyroid disease. PAST SURGICAL HISTORY: 1. Percutaneous transluminal coronary angioplasty with stenting. 2. CABG. MEDICATIONS: 1. Aspirin 81 mg daily. 2. Sotalol 80 mg b.i.d. 3. Lipitor 20 mg at bedtime. 4. Spironolactone 25 mg daily. 5. Levothyroxine 150 mcg daily. 6. Losartan 25 mg daily. 7. Summers 10 q.4 hours p.r.n. ALLERGIES: IODINE AND PLAVIX. FAMILY HISTORY: Noncontributory. SOCIAL HISTORY: Denies tobacco or alcohol use. REVIEW OF SYSTEMS: GENERAL: No fevers, chills, weight gain or weight loss. CONSULT REPORT [id number] NETTIEROSMERY HEENT: No vision change. CARDIOVASCULAR: No chest pain or shortness of breath. RESPIRATORY: No cough, wheezing, or shortness of breath. GASTROINTESTINAL: Please see the HPI. HEMATOLOGIC: No known bleeding disorders or evidence of gastrointestinal bleed. MUSCULOSKELETAL: He has joint pain and swelling. NEUROLOGIC: Denies headaches, numbness, or dizziness. PHYSICAL EXAMINATION: VITAL SIGNS: Temperature 98.1, pulse 44, respirations 16, blood pressure 117/47, and O2 sat 96% on room air. GENERAL: He is well-developed, well-nourished, in no apparent distress. HEENT: Normal dentition and no scleral icterus. LUNGS: No audible wheezing. HEART: Sinus bradycardia. ABDOMEN: Soft, nondistended with only mild right and left lower quadrant tenderness to palpation with no rebound or guarding. No hepatosplenomegaly. No evidence of a hernia. EXTREMITIES: No clubbing, cyanosis, or edema. NEUROLOGIC: Grossly intact. SKIN: No rashes, lesions, or jaundice. LABORATORY DATA: White blood cell count 7.3, hemoglobin 10.7, hematocrit 31.2, platelets 142. Sodium 134, potassium 4.9, chloride 101, bicarb 24, BUN 36, and creatinine 1.8. LFTs were within normal limits. Amylase was 51. Lipase was 85. ASSESSMENT AND PLAN: A 73-year-old white male with constipation, rule out appendicitis. I personally reviewed the images of the patient's CT scan, 5 mm appendix is within normal range with no signs of any surrounding inflammatory changes. I believe there is minimal evidence of appendicitis, especially with his white count normalized and no sign of fever. He appears to have evidence of dehydration and constipation. We would continue to hold diuretics if he is on these and as the patient states that he has not been taking them at home, but I would hold diuretics, give IV fluids, and give the patient laxatives and enemas. If he is still stable after having bowel movements, he should be okay for discharge home. No further followup with surgery is necessary unless something changes with this exam. TRANSINT:[id number] Voice Confirmation ID: [id number] DOCUMENT ID: [id number] BHUMIKA JAMES MD CC: [id number] DICTATION DATE: 07/17/19917 ENVIRONMENTAL SERVICES AIDE: 07/17/194 DEP CLI 07/16/19 [place] [id number] [place] [id number]
[2019-07-15] MEDS ORDERED: HYDROCODON-ACE1 EA10 PO (13:20)
[2019-07-15] MEDS ORDERED: LEVOTHYROXINE150 MCG PO (13:20)
[2019-07-15] MEDS ORDERED: COZAAR25 MG PO (13:21)
[2019-07-15 13:43] LABS: BASOPHILS 0.2 % (0-2); EOSINOPHILS 3.1 % (0-7); HEMATOCRIT 34.6 % (42.0-54.0); HEMOGLOBIN 11.3 g/dL (13.5-17.5); IMMATURE GRANULOCYTES 0.3 % (0-5); LYMPHOCYTES 11.3 % (15-50); MCH 31.7 pg (26.0-34.0); MCHC 32.7 g/dL (31.0-37.0); MCV 97.2 fL (80.0-100.0); MEAN PLATELET VOLUME 9.3 fL (7.4-10.4); MONOCYTES 8.5 % (2-11); NEUTROPHILS 76.6 % (40-80); RBC 3.56 10x6/uL (4.20-6.10); RDW 13.1 % (11.5-14.5); WBC 12.6 10x3/uL (4.8-10.8)
[2019-07-15 13:46] LABS: PLATELET COUNT 154 10x3/uL (130-400)
[2019-07-15 14:00] LABS: CALC OSMOLALITY 277 mosm/kg (275-300); CALCIUM 9.1 mg/dL (8.5-10.1); CARBON DIOXIDE 27.2 mmol/L (21.0-32.0); CHLORIDE - SERUM 99 mmol/L (98-107); CREATININE - SERUM 2.3 mg/dL (0.6-1.3); GLUCOSE 112 mg/dL (74-106); POTASSIUM - SERUM 4.9 mmol/L (3.5-5.1); SODIUM 134 mmol/L (136-145); UREA NITROGEN 38 mg/dL (7-18); eGFR NON AFRICAN AMERICAN 30 mL/min (90-120)
[2019-07-15 14:12] LABS: BILIRUBIN NEGATIVE (NEGATIVE); GLUCOSE NEGATIVE (NEGATIVE); KETONE NEGATIVE (NEGATIVE); NITRITE NEGATIVE (NEGATIVE); UROBILINOGEN NORMAL (NORMAL)
[2019-07-15 14:24] LABS: ALBUMIN 3.9 g/dL (3.4-5.0); ALKALINE PHOSPHATASE 78 U/L (30-120); ALT (SGPT) 48 U/L (10-68); AMYLASE - SERUM 51 U/L (25-115); BILIRUBIN - TOTAL 0.32 mg/dL (0.2-1.3); LIPASE 85 U/L (73-393); PROTEIN - SERUM 7.7 g/dL (6.4-8.2); TROPONIN-I < 0.017 ng/mL (0.000-0.060)
[2019-07-15 17:00] VITALS: BP 123/47; Ht 182.9 cm; Wt 100.0 kg
--- NOTE | 2019-07-15 17:13 | NUR ---
RECEIVED PT TO ROOM VIA AMBULATION, PT IS ALERT AND ORIENTED,IV IN RT AC, PATNET, LUNGS CTA, ABD DISTENDED AND TENDER TO TOUCH, HYPOACTIVE SOUNDS HEARD. PT REQUESTED ICE WATER FOR NOW. NO S/SX OF DISTRESS, VSS, ORIENTED PT TO ROOM AND CL, BED IN LOWEST POSITION, ASSUME PT CARE
[2019-07-15 20:00] VITALS: BP 92/42
--- NOTE | 2019-07-15 21:30 | NUR ---
LYING IN BED. ALERT AND ORIENTED X4. C/O PAIN IN ABD RATING 5 IN RLQ. DENIES N/V. REPORTS LAST BM YESTERDAY AND STATES IT WAS NORMAL. RESP EVEN AND NONLABORED. TELEMETRY SHOWS AFIB WITH RATE OF 46. NS@ 75 ML/HR INFUSING IN RT AC. AMBULATORY. NO ACUTE DISTRESS. SR ELEVATED X2. CL IN REACH.
[2019-07-16] VITALS: BP 113/45
[2019-07-16 04:00] VITALS: BP 106/42
--- NOTE | 2019-07-16 04:15 | NUR ---
REPORTS SMALL FORMED BM.
[2019-07-16 04:51] LABS: BASOPHILS 0 % (0-2); EOSINOPHILS 0 % (0-7); HEMATOCRIT 31.2 % (42.0-54.0); HEMOGLOBIN 10.7 g/dL (13.5-17.5); IMMATURE GRANULOCYTES 0.1 % (0-5); MCH 32.7 pg (26.0-34.0); MCHC 34.3 g/dL (31.0-37.0); MCV 95.4 fL (80.0-100.0); MEAN PLATELET VOLUME 9.5 fL (7.4-10.4); MONOCYTES 2.6 % (2-11); NEUTROPHILS 90.3 % (40-80); PLATELET COUNT 142 10x3/uL (130-400); RBC 3.27 10x6/uL (4.20-6.10); RDW 12.8 % (11.5-14.5)
[2019-07-16 05:01] LABS: WBC 7.3 10x3/uL (4.8-10.8)
[2019-07-16 05:05] LABS: ANION GAP 13.7 mmol/L (8-16); CALCIUM 8.5 mg/dL (8.5-10.1); CARBON DIOXIDE 24.2 mmol/L (21.0-32.0); CREATININE - SERUM 1.8 mg/dL (0.6-1.3); POTASSIUM - SERUM 4.9 mmol/L (3.5-5.1)
--- NOTE | 2019-07-16 07:30 | NUR ---
PT INQUIRED ON WHEN HE WILL BE DC. ADVISED PT THAT WE ARE WAITING FOR DOCTORS TO MAKE ROUNDS AND ASKED IF PT HAS HAD A BM. PT STATED HE HAD 1 THIS MORNING THAT WAS PRETTY FORMED BUT HAS NOT EATEN ANYTHING TO GO. EDUCATED PT ON THE BOWEL FUNCTION AND WHAT TESTS SHOWED AND INFORMED PT THAT 'S METER ATTENDANT WILL BE AROUND SHORTLY. NO OTHER NEEDS AT THIS TIME. CL IN REACH CONTINUE WITH PLAN OF CARE
[2019-07-16 08:18] VITALS: BP 117/47
--- NOTE | 2019-07-16 10:48 | NUR ---
I have reviewed this patient and I concur with the Shift Assessment completed by the Licensed Practical Nurse today this shift.
[2019-07-16 12:34] VITALS: BP 95/45
[2019-07-16 13:19] LABS: BASOPHILS 0 % (0-2); EOSINOPHILS 0 % (0-7); HEMATOCRIT 31.9 % (42.0-54.0); HEMOGLOBIN 10.5 g/dL (13.5-17.5); IMMATURE GRANULOCYTES 0.2 % (0-5); LYMPHOCYTES 7.5 % (15-50); MCHC 32.9 g/dL (31.0-37.0); MCV 97.3 fL (80.0-100.0); MEAN PLATELET VOLUME 9.2 fL (7.4-10.4); MONOCYTES 4.4 % (2-11); NEUTROPHILS 87.9 % (40-80); PLATELET COUNT 159 10x3/uL (130-400); RBC 3.28 10x6/uL (4.20-6.10); RDW 12.8 % (11.5-14.5)
[2019-07-16 13:27] LABS: WBC 11.1 10x3/uL (4.8-10.8)
[2019-07-16 13:35] LABS: CALCIUM 8.5 mg/dL (8.5-10.1); CARBON DIOXIDE 24.7 mmol/L (21.0-32.0); CREATININE - SERUM 1.6 mg/dL (0.6-1.3); POTASSIUM - SERUM 4.7 mmol/L (3.5-5.1)
[2019-07-16 13:39] LABS: MAGNESIUM - SERUM 2.3 mg/dL (1.8-2.4); PHOSPHOROUS 2.9 mg/dL (2.5-4.9)
--- NOTE | 2019-07-16 17:44 | NUR ---
PT STATES HE IS READY TO GO AND WAS TOLD HE WOULD BE DC, APOLOGIZED FOR DELAY AND TOLD HIM I AM WAITING FOR DC ORDERS. CONTINUE WITH PLAN OF CARE
--- NOTE | 2019-07-16 19:30 | NUR ---
ALERT SITTING UP IN BED, STATES I HAVE BEEN WAITING ALL DAY TO GET DISCHARGED HOME, INSTRUCTED WILL CALL AND SEE HAVE NO ORDERS AT THIS TIME, REPORTS HAVING SEVERAL BM'S TODAY, BROWN IN COLOR, DENIES ANY BLOOD OR BLACK STOOLS
--- NOTE | 2019-07-16 20:10 | NUR ---
SPOKE WITH BULMARO MACIAS, DISCHARGE ORDERS RECIEVED, INFORMED PT
[2019-07-16 20:41] VITALS: BP 123/76
--- NOTE | 2019-07-16 21:00 | NUR ---
IV DC'D, DISCHARGE INSTRUCTIONS GIVEN, INSTRUCTED TO FOLLOW UP WITH [facility] IN 1 WEEK, DISCHARGED VIA W/C
== END 2019-07-16 21:00 | disposition home or self-care (01) ==
LOC: D.OPS 13:11 → D.ER 13:11 → D.MS 15:43 → EDSTATUS 15:49 → D.OPS 07-16 21:00
PROVIDERS: Emergency Medicine; Family Medicine; ATTEND Emergency Medicine
DX: I12.9 Hypertensive chronic kidney disease with stage 1 through stage 4 chronic kidney disease, or unspecified chronic kidney disease (principal); N18.9 Chronic kidney disease, unspecified; T44.7X5A Adverse effect of beta-adrenoreceptor antagonists, initial encounter; I48.91 Unspecified atrial fibrillation; N20.0 Calculus of kidney; K59.00 Constipation, unspecified; I25.10 Atherosclerotic heart disease of native coronary artery without angina pectoris; I25.2 Old myocardial infarction; Z95.1 Presence of aortocoronary bypass graft; R10.31 Right lower quadrant pain

== ENCOUNTER 2020-06-19 21:29 | Emergency (ER) | payer OTHER ==
[~2020-06-19] VITALS: Ht 182.9 cm; Wt 99.5 kg
[~2020-06-19 21:29] MED LIST changes: +COZAAR25 MG PO; +HYDROCODON-ACE1 EA10 PO; +LEVOTHYROXINE150 MCG PO
[2020-06-19 21:35] VITALS: Ht 182.9 cm; Wt 99.5 kg
[2020-06-19 22:02] LABS: BASOPHILS 0.1 % (0-2); EOSINOPHILS 1.2 % (0-7); HEMATOCRIT 36.1 % (42.0-54.0); HEMOGLOBIN 12.2 g/dL (13.5-17.5); IMMATURE GRANULOCYTES 0.2 % (0-5); LYMPHOCYTE ABS# 1.43 10x3/uL (1.32-3.57); LYMPHOCYTES 9.9 % (15-50); MCH 31.9 pg (26.0-34.0); MCHC 33.8 g/dL (31.0-37.0); MCV 94.3 fL (80.0-100.0); MEAN PLATELET VOLUME 9.3 fL (7.4-10.4); MONOCYTES 9.9 % (2-11); NEUTROPHIL ABS# 11.39 10x3/uL (1.78-5.38); NEUTROPHILS 78.7 % (40-80); PLATELET COUNT 166 10x3/uL (130-400); RBC 3.83 10x6/uL (4.20-6.10); RDW 12.9 % (11.5-14.5); WBC 14.5 10x3/uL (4.8-10.8)
[2020-06-19 22:03] LABS: BILIRUBIN NEGATIVE (NEGATIVE); KETONE NEGATIVE (NEGATIVE); NITRITE NEGATIVE (NEGATIVE); UROBILINOGEN NORMAL mg/dL (< 2)
[2020-06-19 22:10] LABS: CALC OSMOLALITY 282 mosm/kg (275-300); CALCIUM 9.5 mg/dL (8.5-10.1); CARBON DIOXIDE 28.9 mmol/L (21.0-32.0); CHLORIDE - SERUM 102 mmol/L (98-107); CREATININE - SERUM 1.4 mg/dL (0.6-1.3); GLUCOSE 130 mg/dL (74-106); POTASSIUM - SERUM 4.4 mmol/L (3.5-5.1); SODIUM 139 mmol/L (136-145); UREA NITROGEN 21 mg/dL (7-18); eGFR NON AFRICAN AMERICAN 53 mL/min (90-120)
[2020-06-19 22:18] LABS: ALBUMIN 3.5 g/dL (3.4-5.0); ALKALINE PHOSPHATASE 85 U/L (30-120); ALT (SGPT) 24 U/L (10-68); AMYLASE - SERUM 54 U/L (25-115); BILIRUBIN - TOTAL 0.38 mg/dL (0.2-1.3); LIPASE 81 U/L (73-393); TROPONIN-I < 0.017 ng/mL (0.000-0.060)
[2020-06-20] MEDS ORDERED: COLACE100 MG PO (02:08)
[2020-06-20 02:22] VITALS: BP 121/51
== END 2020-06-20 02:22 | disposition home or self-care (01) ==
LOC: D.ER 21:29
PROVIDERS: Family Medicine
DX: R10.32 Left lower quadrant pain (principal); K57.90 Diverticulosis of intestine, part unspecified, without perforation or abscess without bleeding; I10 Essential (primary) hypertension; Z95.0 Presence of cardiac pacemaker